=== PATIENT | female | born 1960 | race Hispanic/Latino ===

== ENCOUNTER 2018-10-11 11:34 | Emergency (ER) | payer MEDICARE ==
--- NOTE | 2018-10-11 12:52 | Emergency Department Report ---
ED Abdominal Pain HPI - General Chief Complaint: Tube Replacement Stated Complaint: GI BLEED/TUBE Time Seen by Provider: 10/11/18 12:17 Source: patient, EMS Mode of arrival: Stretcher Limitations: Physical Limitation - History of Present Illness Initial Comments: Mrs. Mao is a 58-year-old female with history of arthritis, GERD, MD, hypertension, anemia, depression, schizophrenia, peptic ulcer disease, bipolar disorder, G-tube. She has bleeding at the G-tube site. The G-tube was recently inserted at [facility]. At night she has bleeding at the site. She has irritation at the site. She denies abdominal pain. SHe denies fever. No other concerns. She has been a resident at [facility] for the past 10 years. She stated that previous nurse provided wound care for the G tube site. However this nurse is no longer is available at the facility. Primary physician listed as Dr. Saulo [place] alternative physician Dr. Raji Schmitz. Complaint: other (irritation at g tube site) -: Gradual, days(s) (4-5) Severity: mild Quality: other (irritation) Consistency: intermittent Worsens With: other (manipulation of G tube) Associated Symptoms: denies other symptoms - Related Data Home Medications Medication Instructions Recorded Confirmed Last Taken ALPRAZolam [Xanax TAB] 0.5 mg PO BID 03/31/15 03/31/15 1 Day Ago ~03/30/15 Bisacodyl [Dulcolax suppos] 10 mg [place] QDAY PRN 03/31/15 03/31/15 1 Day Ago ~03/30/15 Butalb/Acetaminophen/Caffeine 1 cap PO Q4H PRN 03/31/15 03/31/15 1 Day Ago [Fioricet 50-300-40 mg CAP] ~03/30/15 Cetirizine HCl [ZyrTEC 10mg cap] 10 mg PO DAILY 03/31/15 03/31/15 1 Day Ago ~03/30/15 Citalopram [Celexa] 30 mg PO QDAY 03/31/15 03/31/15 1 Day Ago ~03/30/[address] [Depakote Dr] 500 mg PO BID 03/31/15 03/31/15 1 Day Ago ~03/30/15 Fluticasone [Flonase] 2 spray NS QDAY 03/31/15 03/31/15 1 Day Ago ~03/30/15 Gabapentin [Neurontin] 100 mg PO Q8HR 03/31/15 03/31/15 1 Day Ago ~03/30/15 Haloperidol Lactate [Haldol] 1 mg IM Q6H PRN 03/31/15 03/31/15 1 Day Ago ~03/30/15 Haloperidol [Haldol] 5 mg PO QHS PRN 03/31/15 03/31/15 1 Day Ago ~03/30/15 Melatonin/Pyridoxine [Melatonin 5 1 each PO QHS 03/31/15 03/31/15 1 Day Ago mg Tablet] ~03/30/15 Ondansetron [Zofran TAB] 4 mg PO Q6H PRN 03/31/15 03/31/15 1 Day Ago ~03/30/15 Polyvinyl Alcohol [Artificial 15 ml OP TID 03/31/15 03/31/15 1 Day Ago Tears] ~03/30/15 Sennosides Tab [Senokot] 17.2 mg PO QHS 03/31/15 03/31/15 1 Day Ago ~03/30/15 levETIRAcetam [Keppra TAB] 1,500 mg PO BID 03/31/15 03/31/15 1 Day Ago ~03/30/15 Previous Rx's Medication Instructions Recorded Last Taken Type Pantoprazole [Protonix TAB] 40 mg PO QDAY #30 tablet 04/04/15 Unknown Rx Sucralfate [Carafate] 1 gm PO Q8H 30 Days tablet 04/04/15 Unknown Rx Polyethylene Glycol 3350 [Miralax 17 gm FEEDTUBE QDAY powd.pack 06/24/18 Unknown Rx 3350] Neomycn/Bacitrc/Polymyx/Pramox 1 applicatio TP BID 10 Days #1 10/11/18 Unknown Rx [Triple Antibiotic Plus Ointmnt] oint...g. Sulfamethoxazole/Trimethoprim 1 each PO BID 7 Days #14 tablet 10/11/18 Unknown Rx [Bactrim DS TAB] Allergies Allergy/AdvReac Type Severity Reaction Status Date / Time Penicillins Allergy Itching Verified 10/11/18 12:05 promethazine HCl Allergy Hives Verified 10/11/18 12:05 [From Phenergan] ED Review of Systems ROS: Stated complaint: GI BLEED/TUBE Other details as noted in HPI Constitutional: denies: malaise Gastrointestinal: denies: abdominal pain, nausea, vomiting Skin: rash ED Past Medical Hx - Past Medical History Previous Medical History?: Yes Hx Hypertension: Yes Hx Heart Attack/AMI: Yes Hx Congestive Heart Failure: No Hx Diabetes: No Hx GERD: Yes Hx Arthritis: Yes Hx Headaches / Migraines: No Hx Seizures: Yes Hx Psychiatric Treatment: Yes Hx Asthma: No Hx COPD: No Hx Dementia: No Hx HIV: No Additional medical history: anemia; depression; schizophrenia; peptic ulcer disease. Mental delay; bipolar; MDD; SANTANA; - Surgical History Past Surgical History?: Yes Additional Surgical History: leg surgery; Right hip replacement; GTube - Social History Smoking Status: Never Smoker Substance Use Type: None - Medications Home Medications: Home Medications Medication Instructions Recorded Confirmed Last Taken Type ALPRAZolam [Xanax TAB] 0.5 mg PO BID 03/31/15 03/31/15 1 Day Ago History ~03/30/15 Bisacodyl [Dulcolax suppos] 10 mg [place] QDAY PRN 03/31/15 03/31/15 1 Day Ago History ~03/30/15 Butalb/Acetaminophen/Caffeine 1 cap PO Q4H PRN 03/31/15 03/31/15 1 Day Ago History [Fioricet 50-300-40 mg CAP] ~03/30/15 Cetirizine HCl [ZyrTEC 10mg cap] 10 mg PO DAILY 03/31/15 03/31/15 1 Day Ago History ~03/30/15 Citalopram [Celexa] 30 mg PO QDAY 03/31/15 03/31/15 1 Day Ago History ~03/30/[address] [Depakote Dr] 500 mg PO BID 03/31/15 03/31/15 1 Day Ago History ~03/30/15 Fluticasone [Flonase] 2 spray NS QDAY 03/31/15 03/31/15 1 Day Ago History ~03/30/15 Gabapentin [Neurontin] 100 mg PO Q8HR 03/31/15 03/31/15 1 Day Ago History ~03/30/15 Haloperidol Lactate [Haldol] 1 mg IM Q6H PRN 03/31/15 03/31/15 1 Day Ago History ~03/30/15 Haloperidol [Haldol] 5 mg PO QHS PRN 03/31/15 03/31/15 1 Day Ago History ~03/30/15 Melatonin/Pyridoxine [Melatonin 5 1 each PO QHS 03/31/15 03/31/15 1 Day Ago History mg Tablet] ~03/30/15 Ondansetron [Zofran TAB] 4 mg PO Q6H PRN 03/31/15 03/31/15 1 Day Ago History ~03/30/15 Polyvinyl Alcohol [Artificial 15 ml OP TID 03/31/15 03/31/15 1 Day Ago History Tears] ~03/30/15 Sennosides Tab [Senokot] 17.2 mg PO QHS 03/31/15 03/31/15 1 Day Ago History ~03/30/15 levETIRAcetam [Keppra TAB] 1,500 mg PO BID 03/31/15 03/31/15 1 Day Ago History ~03/30/15 Pantoprazole [Protonix TAB] 40 mg PO QDAY #30 tablet 04/04/15 Unknown Rx Sucralfate [Carafate] 1 gm PO Q8H 30 Days tablet 04/04/15 Unknown Rx Polyethylene Glycol 3350 [Miralax 17 gm FEEDTUBE QDAY powd.pack 06/24/18 Unknown Rx 3350] Neomycn/Bacitrc/Polymyx/Pramox 1 applicatio TP BID 10 Days #1 10/11/18 Unknown Rx [Triple Antibiotic Plus Ointmnt] oint...g. Sulfamethoxazole/Trimethoprim 1 each PO BID 7 Days #14 tablet 10/11/18 Unknown Rx [Bactrim DS TAB] ED Physical Exam - General Limitations: Physical Limitation General appearance: alert, in no apparent distress - Head Head exam: Present: atraumatic, normocephalic - Eye Eye exam: Present: normal appearance. Absent: scleral icterus, nystagmus - ENT ENT exam: Present: mucous membranes moist - Neck Neck exam: Present: normal inspection, full ROM - Respiratory Respiratory exam: Absent: respiratory distress - GI/Abdominal GI/Abdominal exam: Present: soft, other (red irritated skin surrounding G tube ) - Neurological Exam Neurological exam: Present: alert, oriented X3 - Psychiatric Psychiatric exam: Present: normal affect, normal mood ED Course Vital Signs 10/11/18 10/11/18 11:58 12:05 Temperature 97.8 F Pulse Rate 65 Respiratory 16 16 Rate Blood Pressure 115/65 O2 Sat by Pulse 100 100 Oximetry ED Medical Decision Making - Medical Decision Making G tube site irritation, possible cellulits, will prescribed antibiotic ointment and bactrim Dc'd to SNF after wound care provided by nurse in our ED Critical care attestation.: If time is entered above; I have spent that time in minutes in the direct care of this critically ill patient, excluding procedure time. ED Disposition Clinical Impression: G-tube site cellulitis Disposition: DC/TX-70 ANOTHER TYPE HLTHCARE Is pt being admited?: No Does the pt Need Aspirin: No Condition: Stable Additional Instructions: Ms. Mao will need topical and oral antibiotics. She will especially need regular wound care at the site. Prescriptions: Sulfamethoxazole/Trimethoprim [Bactrim DS TAB] 1 each PO BID 7 Days #14 tablet Neomycn/Bacitrc/Polymyx/Pramox [Triple Antibiotic Plus Ointmnt] 1 applicatio TP BID 10 Days #1 oint...g.
[2018-10-11] MEDS ORDERED: BACTRIM DS PO ONE (12:53)
[2018-10-11] MEDS ORDERED: TRIPLE ANTIBIOTIC TP ONE (12:53)
[2018-10-11 13:38] VITALS: BP 135/71
== END 2018-10-11 15:00 | disposition other institution (70) ==
LOC: ED 11:34
DX: K94.23 Gastrostomy malfunction (principal); L03.311 Cellulitis of abdominal wall; I10 Essential (primary) hypertension; I25.2 Old myocardial infarction; K21.9 Gastro-esophageal reflux disease without esophagitis; M19.90 Unspecified osteoarthritis, unspecified site; Z86.2 Personal history of diseases of the blood and blood-forming organs and certain disorders involving the immune mechanism; F31.9 Bipolar disorder, unspecified; F20.9 Schizophrenia, unspecified; Z79.899 Other long term (current) drug therapy; Z88.1 Allergy status to other antibiotic agents; Z88.0 Allergy status to penicillin; Z96.641 Presence of right artificial hip joint
CPT/HCPCS: A6250

== ENCOUNTER 2019-03-06 11:01 | Emergency (ER) | payer MEDICARE ==
--- NOTE | 2019-03-06 11:43 | Emergency Department Report ---
HPI - General Chief Complaint: Psych Time Seen by Provider: 03/06/19 11:33 - HPI HPI: 58-year-old female presents to the emergency department via EMS from her [facility] with the complaint of depression. She does have a history of bipolar disorder and generalized anxiety. She says that she is feeling depressed because it is around the holidays and her mother, father, and sister have previously . She has been living at [facility] for the past 10 years but the patient actually says that she enjoys living at that facility and the staff "likes me and I like them." However she does say that she has some arguments with her roommate regarding using the heating versus air-conditioning. She also says that they are shortstaffed there. She denies any suicidal or homicidal ideations, or any hallucinations. She also has a past medical history of hypertension, acid reflux. She is non-ambulatory. She says that she has a psychiatrist in [place] but it is far away and she cannot even currently remember their name. ED Past Medical Hx - Past Medical History Previous Medical History?: Yes Hx Hypertension: Yes Hx Heart Attack/AMI: Yes Hx Congestive Heart Failure: No Hx Diabetes: No Hx Deep Vein Thrombosis: Yes Hx GERD: Yes Hx Arthritis: Yes Hx Headaches / Migraines: No Hx Seizures: Yes Hx Psychiatric Treatment: Yes (Anxiety, Schizophrenia, Bipolar, MDD) Hx Asthma: No Hx COPD: No Hx Dementia: No Hx HIV: No Additional medical history: anemia; depression; schizophrenia; peptic ulcer disease. Mental delay; bipolar; MDD; SANTANA; - Surgical History Past Surgical History?: Yes Additional Surgical History: leg surgery; Right hip replacement; GTube - Social History Smoking Status: Never Smoker Substance Use Type: None - Medications Home Medications: Home Medications Medication Instructions Recorded Confirmed Last Taken Type ALPRAZolam [Xanax TAB] 0.5 mg PO BID 03/31/15 03/31/15 1 Day Ago History ~03/30/15 Bisacodyl [Dulcolax suppos] 10 mg [place] QDAY PRN 03/31/15 03/31/15 1 Day Ago Hist ory ~03/30/15 Butalb/Acetaminophen/Caffeine 1 cap PO Q4H PRN 03/31/15 03/31/15 1 Day Ago His tory [Fioricet 50-300-40 mg CAP] ~03/30/15 Cetirizine HCl [ZyrTEC 10mg cap] 10 mg PO DAILY 03/31/15 03/31/15 1 Day Ago History ~03/30/15 Citalopram [Celexa] 30 mg PO QDAY 03/31/15 03/31/15 1 Day Ago History ~03/30/[address] [Depakote Dr] 500 mg PO BID 03/31/15 03/31/15 1 Day Ago History ~03/30/15 Fluticasone [Flonase] 2 spray NS QDAY 03/31/15 03/31/15 1 Day Ago History ~03/30/15 Gabapentin 100 mg PO Q8HR 03/31/15 03/31/15 1 Day Ago History ~03/30/15 Haloperidol Lactate [Haldol] 1 mg IM Q6H PRN 03/31/15 03/31/15 1 Day Ago History ~03/30/15 Haloperidol [Haldol] 5 mg PO QHS PRN 03/31/15 03/31/15 1 Day Ago History ~03/30/15 Melatonin/Pyridoxine [Melatonin 5 1 each PO QHS 03/31/15 03/31/15 1 Day Ago History mg Tablet] ~03/30/15 Ondansetron [Zofran TAB] 4 mg PO Q6H PRN 03/31/15 03/31/15 1 Day Ago History ~03/30/15 Polyvinyl Alcohol [Artificial 15 ml OP TID 03/31/15 03/31/15 1 Day Ago History Tears] ~03/30/15 Sennosides Tab [Senokot] 17.2 mg PO QHS 03/31/15 03/31/15 1 Day Ago History ~03/30/15 levETIRAcetam [Keppra TAB] 1,500 mg PO BID 03/31/15 03/31/15 1 Day Ago History ~03/30/15 Pantoprazole [Protonix TAB] 40 mg PO QDAY #30 tablet 04/04/15 Unknown Rx Sucralfate [Carafate] 1 gm PO Q8H 30 Days tablet 04/04/15 Unknown Rx Polyethylene Glycol 3350 [Miralax 17 gm FEEDTUBE QDAY powd.pack 06/24/18 Unknown Rx 3350] Neomycn/Bacitrc/Polymyx/Pramox 1 applicatio TP BID 10 Days #1 10/11/18 Unknown Rx [Triple Antibiotic Plus Ointmnt] oint...g. Sulfamethoxazole/Trimethoprim 1 each PO BID 7 Days #14 tablet 10/11/18 Unknown Rx [Bactrim DS TAB] ED Review of Systems ROS: Stated complaint: DEPRESSION Other details as noted in HPI Comment: All other systems reviewed and negative Constitutional: denies: chills, fever Respiratory: denies: shortness of breath Cardiovascular: denies: chest pain Gastrointestinal: denies: abdominal pain Neurological: denies: headache, weakness Psychiatric: depression. denies: auditory hallucinations, visual hallucinations, homicidal thoughts, suicidal thoughts Physical Exam - Physical Exam Physical Exam: GENERAL: The patient is well-developed well-nourished. HENT: Normocephalic. Atraumatic. Patient has moist mucous membranes. EYES: Extraocular motions are intact. NECK: Supple. Trachea is midline. CHEST/LUNGS: Clear to auscultation. There is no respiratory distress noted. HEART/CARDIOVASCULAR: Regular. There is no tachycardia. There is no murmur. ABDOMEN: Abdomen is soft, nontender. Patient has normal bowel sounds. There is no abdominal distention. SKIN: Skin is warm and dry. NEURO: The patient is awake, alert, and oriented. The patient is cooperative. The patient has no focal neurologic deficits. Normal speech. MUSCULOSKELETAL: There are chronic foot contractures. There is no limitation range of motion. There is no evidence of acute injury. PSYCH: Patient is tearful. ED Medical Decision Making - Lab Data Result diagrams: 03/06/19 12:08 03/06/19 12:08 - Medical Decision Making This patient presents to the emergency department with complaint of depression. She appears to be sad that she is alone during the holidays, and she also has some disagreements with her [facility] roommate. The patient is slightly emotionally labile and is often seen being tearful. She denies any suicidal or homicidal ideations or any hallucinations. Labs have been mostly unremarkable. The patient was seen by the psychiatric assessment team and the patient has been accepted to go to the [facility] floor. - Differential Diagnosis depression, bipolar disorder, substance abuse Critical Care Time: No Critical care attestation.: If time is entered above; I have spent that time in minutes in the direct care of this critically ill patient, excluding procedure time. ED Disposition Clinical Impression: Bipolar 2 disorder Depression Qualifiers: Depression Type: unspecified Qualified Code(s): F32.9 - Major depressive disorder, single episode, unspecified Disposition: DC-01 TO HOME OR SELFCARE Is pt being admited?: No Condition: Stable Instructions: Depression (ED), Suicide Prevention for Adults (ED) Time of Disposition: 14:25
[2019-03-06 12:21] LABS: Basophils % (Auto) 0.4 % (0.0-1.8); Eosinophils # (Auto) 0.4 K/mm3 (0.0-0.4); Eosinophils % (Auto) 6.4 % (0.0-4.3); Hematocrit 37.6 % (30.3-42.9); Hemoglobin 12.6 gm/dl (10.1-14.3); Lymphocytes # (Auto) 1.9 K/mm3 (1.2-5.4); Lymphocytes % (Auto) 33.6 % (13.4-35.0); Mean Corpuscular HGB Conc 34 % (30-34); Mean Corpuscular Volume 89 fl (79-97); Monocytes # (Auto) 0.3 K/mm3 (0.0-0.8); Monocytes % (Auto) 5.9 % (0.0-7.3); Platelet Count 129 K/mm3 (140-440); Red Blood Count 4.24 M/mm3 (3.65-5.03); Red Cell Distribution Width 13.9 % (13.2-15.2)
[2019-03-06 12:41] LABS: BUN/Creatinine Ratio 33; Blood Urea Nitrogen 10 mg/dL (7-17); Calcium 10.2 mg/dL (8.4-10.2); Hemolysis Index 5
[2019-03-06 13:19] LABS: Amorphous Crystals,Urine Few; Bacteria,Urine 1+ /HPF (Negative); Bilirubin,Urine NEG (Negative); Blood,Urine NEG (Negative); Color,Urine Yellow (Yellow); Mucus,Urine FEW /HPF; Protein,Urine <15 mg/dL mg/dL (Negative); Urobilinogen,Urine < 2.0 mg/dL (<2.0)
[2019-03-06 13:27] LABS: Amphetamine Screen,Urine PRESUMPTIVE NEGATIVE; Cannabinoid Screen,Urine PRESUMPTIVE NEGATIVE; Cocaine Screen,Urine PRESUMPTIVE NEGATIVE; Methadone Screen,Urine PRESUMPTIVE NEGATIVE; Opiate Screen,Urine PRESUMPTIVE NEGATIVE
[2019-03-06 13:40] LABS: Benzodiazepines Screen,Urine PRESUMPTIVE POSITIVE
[2019-03-06] MEDS ORDERED: CITALOPRAM 20 MG TAB PO ONE (16:13)
[2019-03-06] MEDS ORDERED: ARIPiprazole 10 MG TAB PO ONE (16:15)
[2019-03-06] MEDS ORDERED: QUEtiapine 25 MG TAB PO ONE (16:21)
[2019-03-06 16:50] VITALS: BP 115/87
[2019-03-06] MEDS ORDERED: VENLAFAXINE 37.5 MG TAB PO ONE (17:00)
== END 2019-03-06 16:50 | disposition home or self-care (01) ==
LOC: ED 11:01
DX: F31.9 Bipolar disorder, unspecified (principal); I10 Essential (primary) hypertension; I25.2 Old myocardial infarction; K21.9 Gastro-esophageal reflux disease without esophagitis; M19.90 Unspecified osteoarthritis, unspecified site; G43.909 Migraine, unspecified, not intractable, without status migrainosus; F20.9 Schizophrenia, unspecified
CPT/HCPCS: 36415; 80048; 80307; 80320; 81001; 85025; G0480

== ENCOUNTER 2019-03-06 14:28 | Inpatient (IN) | payer MEDICARE ==
[2019-03-06] MEDS ORDERED: HALOPERIDOL 5 MG TAB PO PRN (15:39)
[2019-03-06] MEDS ORDERED: NON-FORMULARY EACH (Butalb/Acetaminophen/Caffeine [Fioricet 50-300-40 Mg Cap] 1 CAP) PO PRN (15:39)
[2019-03-06] MEDS ORDERED: BUTALB/ACETAMINOPHEN/CAFFEINE TAB PO PRN (17:34)
[2019-03-06] MEDS ORDERED: POLYVINYL ALCOHOL OP SCH (20:00)
[2019-03-06] MEDS: SENNOSIDES 8.6 MG TAB PO SCH (21:51)
[2019-03-06] MEDS: SULFAMETHOXAZOLE/TRIMETHOPRIM 800/160MG DS TAB PO SCH (21:51)
[2019-03-06] MEDS: GABAPENTIN 100 MG CAP PO SCH (21:52)
[2019-03-06] MEDS: clonazePAM 0.5 MG TAB PO SCH (21:52)
[2019-03-06] MEDS: levETIRAcetam 500 MG TAB PO SCH (21:52)
[2019-03-06] MEDS: HYPROMELLOSE 0.5% OPHTH SOLN 15 ML OU SCH (21:59)
[2019-03-06] MEDS ORDERED: DIVALPROEX DR 500 MG TAB PO SCH (22:00)
[2019-03-06] MEDS ORDERED: DIVALPROEX DR 250 MG TAB PO SCH (22:00)
[2019-03-06] MEDS ORDERED: LEVETIRACETAM 1500 MG PO SCH (22:00)
[2019-03-06 23:16] LABS: Chol/HDL Ratio 3.48 %
[2019-03-07] MEDS: GABAPENTIN 100 MG CAP PO SCH ×3 (05:35→22:31)
[2019-03-07] MEDS: SUCRALFATE 1 GM TAB PO SCH ×4 (06:03→17:07)
[2019-03-07] MEDS: HYPROMELLOSE 0.5% OPHTH SOLN 15 ML OU SCH ×3 (08:30→20:12)
--- NOTE | 2019-03-07 09:30 | History and Physical Report ---
GP History & Physical - History of Present Illness Date of admission: 03/06/19 Date of Examination: 03/06/19 Reason for Admission: Severe anxiety/depression Chief Complaint: I feel depressed. History of Present Illness: The patient is a 58 year old single disabled female. The patient resides at a half-way. The patient was transferred from [facility] with h/o depression and being suicidal. Per Nursing report: Received patient awake, alert and oriented x3. PM meds given via peg tube. Patient denies SI/HI but did state she felt depressed. Patient is total care, bed bound and 1-2 assist. Incontinent of bowel and bladder. Large hard BM observed. Patient complain of nausea and vomiting. Coffee brown emesis observed. Patient stated she felt like she was coming down with a cold. Clear tenacious phlegm and a runny nose observed. Sacral area and back of legs noted with excoriation and redness. In my interview with the patient, she states that she was depressed, but is now just sick. The patient has been diagnosed as bipolar, and had been admitted many times psychiatric hospitals.(over 10 times) She has tried to kill her self once by placing bags on her head. The patient does have a psychiatrist in [place] but cant remember his/her name. Two of her sisters have been diagnosed as bipolar also. The patient does not drink, smoke or do drugs. She presently has no thoughts of suicide, does not want to harm anyone, or feels as if someone wants to harm her. The patients highest educational level completed was the 12th grade. (special education) PAST PSYCHIATRIC HISTORY: Diagnoses: BIPOLAR Suicide attempts or Self-harm behavior 1 SUICIDE ATTEMPT IN THE PAST. PATIENT PUT PLASTIC BAGS OVER HER HEAD. Prior psychiatric hospitalizations Patient has been hospitalized over 10 times. Substance Abuse history:NONE PAST MEDICAL HISTORY: Family Psychiatric History 2 sisters have been diagnosed as bipolar None reported or documented SOCIAL HISTORY Marital Status: Single Living Arrangements: Half-Way Employment Status: Unemployed Access to guns/weapons: NONE Education: 12th Grade History of Abuse: NONE Legal History: NONE REVIEW OF SYSTEMS Constitutional: Negative for weight loss ENT: Negative for stridor Respiratory: Negative for cough or hemoptysis All other systems reviewed and are negative Legal Status: Voluntary Patient Problems: Current Active Problems Bipolar 1 disorder, depressed, severe (Acute) Reaction to Hospitalization: Accepting Medications and Allergies Allergies Allergy/AdvReac Type Severity Reaction Status Date / Time Penicillins Allergy Itching Verified 10/11/18 12:05 promethazine HCl Allergy Hives Verified 10/11/18 12:05 [From Phenergan] Home Medications Medication Instructions Recorded Confirmed Last Taken Type ALPRAZolam [Xanax TAB] 0.5 mg PO BID 03/31/15 03/06/19 1 Day Ago History ~03/30/15 Bisacodyl [Dulcolax suppos] 10 mg [place] QDAY PRN 03/31/15 03/06/19 1 Day Ago History ~03/30/15 Butalb/Acetaminophen/Caffeine 1 cap PO Q4H PRN 03/31/15 03/06/19 1 Day Ago History [Fioricet 50-300-40 mg CAP] ~03/30/15 Cetirizine HCl [ZyrTEC 10mg cap] 10 mg PO DAILY 03/31/15 03/06/19 1 Day Ago History ~03/30/15 Citalopram [Celexa] 30 mg PO QDAY 03/31/15 03/06/19 1 Day Ago History ~03/30/[address] [Depakote Dr] 500 mg PO BID 03/31/15 03/06/19 1 Day Ago History ~03/30/15 Fluticasone [Flonase] 2 spray NS QDAY 03/31/15 03/06/19 1 Day Ago History ~03/30/15 Gabapentin 100 mg PO Q8HR 03/31/15 03/06/19 1 Day Ago History ~03/30/15 Haloperidol Lactate [Haldol] 1 mg IM Q6H PRN 03/31/15 03/06/19 1 Day Ago History ~03/30/15 Haloperidol [Haldol] 5 mg PO QHS PRN 03/31/15 03/06/19 1 Day Ago History ~03/30/15 Melatonin/Pyridoxine [Melatonin 5 1 each PO QHS 03/31/15 03/06/19 1 Day Ago History mg Tablet] ~03/30/15 Ondansetron [Zofran TAB] 4 mg PO Q6H PRN 03/31/15 03/06/19 1 Day Ago History ~03/30/15 Polyvinyl Alcohol [Artificial 15 ml OP TID 03/31/15 03/06/19 1 Day Ago History Tears] ~03/30/15 Sennosides Tab [Senokot] 17.2 mg PO QHS 03/31/15 03/06/19 1 Day Ago History ~03/30/15 levETIRAcetam [Keppra TAB] 1,500 mg PO BID 03/31/15 03/06/19 1 Day Ago History ~03/30/15 Pantoprazole [Protonix TAB] 40 mg PO QDAY #30 tablet 04/04/15 03/06/19 Unknown Rx Sucralfate [Carafate] 1 gm PO Q8H 30 Days tablet 04/04/15 03/06/19 Unknown Rx Polyethylene Glycol 3350 [Miralax 17 gm FEEDTUBE QDAY powd.pack 06/24/18 03/06/19 03/05/19 Rx 3350] Neomycn/Bacitrc/Polymyx/Pramox 1 applicatio TP BID 10 Days #1 10/11/18 03/06/19 Unknown Rx [Triple Antibiotic Plus Ointmnt] oint...g. Sulfamethoxazole/Trimethoprim 1 each PO BID 7 Days #14 tablet 10/11/18 03/06/19 Unknown Rx [Bactrim DS TAB] Active Meds: Active Medications Acetaminophen/Butalbital/Caffeine (Fioricet) 1 tab PO Q4H PRN PRN Reason: Headache Artificial Tears (Isopto Tears 0.5%) 2 drops OU TID [facility] Last Admin: 03/06/19 21:59 Dose: 2 drops Documented by: Bisacodyl (Dulcolax) 10 mg [place] QDAY PRN PRN Reason: Constipation Citalopram Hydrobromide (Celexa) 30 mg PO DAILY [facility] Clonazepam (Klonopin) 0.5 mg PO BID [facility] Last Admin: 03/06/19 21:52 Dose: 0.5 mg Documented by: Divalproex Sodium (Depakote Dr) 500 mg PO BID [facility] Last Admin: 03/06/19 21:51 Dose: 500 mg Documented by: Fluticasone Propionate (Flonase) 100 mcg NS QDAY [facility] Gabapentin (Gabapentin) 100 mg PO Q8HR [facility] Last Admin: 03/07/19 05:35 Dose: 100 mg Documented by: Haloperidol (Haldol) 5 mg PO QHS PRN PRN Reason: Agitation Haloperidol Lactate (Haldol) 1 mg IM Q6H PRN PRN Reason: Agitation Levetiracetam (Keppra) 1,500 mg PO BID [facility] Last Admin: 03/06/19 21:52 Dose: 1,500 mg Documented by: Loratadine (Claritin) 10 mg PO DAILY [facility] Pantoprazole Sodium (Protonix) 40 mg PO QDAY [facility] Polyethylene Glycol (Miralax 3350) 17 gm FEEDTUBE QDAY [facility] Senna (Senokot) 17.2 mg PO QHS [facility] Last Admin: 03/06/19 21:51 Dose: 17.2 mg Documented by: Sucralfate (Carafate) 1 gm PO Q8H [facility] Last Admin: 03/07/19 06:03 Dose: Not Given Documented by: Trimethoprim/Sulfamethoxazole (Bactrim Ds) 1 each PO BID [facility] Stop: 03/12/19 22:01 Last Admin: 03/06/19 21:51 Dose: 1 each Documented by: Results - Results Labs/Vitals: Laboratory Last Values Hemoglobin A1c 5.2 % (4-6) 03/06/19 12:08 Triglycerides 73 mg/dL (2-149) 03/06/19 21:18 Cholesterol 157 mg/dL (50-199) 03/06/19 21:18 LDL Cholesterol Direct 102 mg/dL (50-130) 03/06/19 21:18 HDL Cholesterol 45 mg/dL (40-59) 03/06/19 21:18 Cholesterol/HDL Ratio 3.48 % 03/06/19 21:18 Last Vital Signs Temp 98.3 F 03/06/19 22:00 Pulse 92 H 03/06/19 22:00 Resp 18 03/06/19 22:00 BP 147/83 03/06/19 22:00 Pulse Ox 95 03/06/19 22:00 Physical Examination - Constitutional Vitals: Vital Signs Temp Pulse Resp BP Pulse Ox 98.3 F 92 H 18 147/83 95 03/06/19 22:00 03/06/19 22:00 03/06/19 22:00 03/06/19 22:00 03/06/19 22:00 Temperature -Last 24 Hours Temperature 98.3 F General appearance: Present: no acute distress, well-nourished - EENT Eyes: Present: PERRL, EOM intact ENT: hearing intact, clear oral mucosa - Neck Neck: Present: supple, normal ROM - Respiratory Respiratory effort: normal Mental Status Exam - Vital signs Last Vital Signs Temp 98.3 F 03/06/19 22:00 Pulse 92 H 03/06/19 22:00 Resp 18 03/06/19 22:00 BP 147/83 03/06/19 22:00 Pulse Ox 95 03/06/19 22:00 - Exam Orientation: time, place, person Affect: depressed Mood: congruent with affect Thought content: other (No SI/HI) Thought Process: Intact Perceptions: none Speech: normal rate and pattern Concentration: focused Motor activity: lethargic Level of consciousness: alert Memory: Intact Interaction: cooperative Assessment and Plan - Psychiatric problem (1) Bipolar 1 disorder, depressed, severe Current Visit: Yes Status: Acute plan to address problem: Patient will be admitted for inpatient psychiatric evaluation, medication adjustment and close monitoring The patient's behavior, mood, sleep and appetite will be closely monitored. Patient will be enrolled in individual and group therapeutic sessions and encouraged to attend. Patient will be provided with a safe and structured environment. Patient's physical health needs will be addressed by the Hospitalist. Hospitalist Consulted Labs including CBC, CMP, Lipid profile and Hemoglobin A1C ordered Social Assessment will be completed and the [employer] Consultant will work with patient and family to ensure a suitable and safe disposition Medication adjustment will be made as clinically indicated The patient agreed on the treatment plan, understood the risk, benefit, alternative treatment, potential consequence of no treatment, and gave informed consent. Physician Certification - Certification Statement Physician Certification Statement: This is an acknowledgement statement that JOSSIE SNOW is a 58 year old F who requires inpatient psychiatric admission for treatment which could reasonably be expected to improve the patient's condition for Depression Estimated period of time patient will need to remain in the hospital: 7 days Plan for post-hospital care: out-patient care
--- NOTE | 2019-03-07 09:46 | Progress Note ---
Subjective Date of service: 03/07/19 Subjective Comment: received patient awake, alert and oriented x3. PM meds given via peg tube. Patient denies SI/HI but did state she felt depressed In my interview with the patient this morning, the patient stated she was in a good mood, and eating well. The patient stated that she hadn't been sleeping well, was depressed but is now just sick and wants to go back to where she was. The patient has no paranoia, no thoughts of suicide, and does not hear voices. Medications and Allergies Allergies Allergy/AdvReac Type Severity Reaction Status Date / Time Penicillins Allergy Itching Verified 10/11/18 12:05 promethazine HCl Allergy Hives Verified 10/11/18 12:05 [From Phenergan] Home Medications Medication Instructions Recorded Confirmed Last Taken Type ALPRAZolam [Xanax TAB] 0.5 mg PO BID 03/31/15 03/06/19 1 Day Ago History ~03/30/15 Bisacodyl [Dulcolax suppos] 10 mg [place] QDAY PRN 03/31/15 03/06/19 1 Day Ago History ~03/30/15 Butalb/Acetaminophen/Caffeine 1 cap PO Q4H PRN 03/31/15 03/06/19 1 Day Ago History [Fioricet 50-300-40 mg CAP] ~03/30/15 Cetirizine HCl [ZyrTEC 10mg cap] 10 mg PO DAILY 03/31/15 03/06/19 1 Day Ago History ~03/30/15 Citalopram [Celexa] 30 mg PO QDAY 03/31/15 03/06/19 1 Day Ago History ~03/30/[address] [Depakote Dr] 500 mg PO BID 03/31/15 03/06/19 1 Day Ago History ~03/30/15 Fluticasone [Flonase] 2 spray [place] QDAY 03/31/15 03/06/19 1 Day Ago History ~03/30/15 Gabapentin 100 mg PO Q8HR 03/31/15 03/06/19 1 Day Ago History ~03/30/15 Haloperidol Lactate [Haldol] 1 mg IM Q6H PRN 03/31/15 03/06/19 1 Day Ago History ~03/30/15 Haloperidol [Haldol] 5 mg PO QHS PRN 03/31/15 03/06/19 1 Day Ago History ~03/30/15 Melatonin/Pyridoxine [Melatonin 5 1 each PO QHS 03/31/15 03/06/19 1 Day Ago History mg Tablet] ~03/30/15 Ondansetron [Zofran TAB] 4 mg PO Q6H PRN 03/31/15 03/06/19 1 Day Ago History ~03/30/15 Polyvinyl Alcohol [Artificial 15 ml OP TID 03/31/15 03/06/19 1 Day Ago History Tears] ~03/30/15 Sennosides Tab [Senokot] 17.2 mg PO QHS 03/31/15 03/06/19 1 Day Ago History ~03/30/15 levETIRAcetam [Keppra TAB] 1,500 mg PO BID 03/31/15 03/06/19 1 Day Ago History ~03/30/15 Pantoprazole [Protonix TAB] 40 mg PO QDAY #30 tablet 04/04/15 03/06/19 Unknown Rx Sucralfate [Carafate] 1 gm PO Q8H 30 Days tablet 04/04/15 03/06/19 Unknown Rx Polyethylene Glycol 3350 [Miralax 17 gm FEEDTUBE QDAY [facility].pack 06/24/18 03/06/19 03/05/19 Rx 3350] Neomycn/Bacitrc/Polymyx/Pramox 1 applicatio TP BID 10 Days #1 10/11/18 03/06/19 Unknown Rx [Triple Antibiotic Plus Ointmnt] oint...g. Sulfamethoxazole/Trimethoprim 1 each PO BID 7 Days #14 tablet 10/11/18 03/06/19 Unknown Rx [Bactrim DS TAB] Active Meds: Active Medications Acetaminophen/Butalbital/Caffeine (Fioricet) 1 tab PO Q4H PRN PRN Reason: Headache Artificial Tears (Isopto Tears 0.5%) 2 drops OU TID [facility] Last Admin: 03/06/19 21:59 Dose: 2 drops Documented by: Bisacodyl (Dulcolax) 10 mg [place] QDAY PRN PRN Reason: Constipation Citalopram Hydrobromide (Celexa) 30 mg PO DAILY [facility] Clonazepam (Klonopin) 0.5 mg PO BID [facility] Last Admin: 03/06/19 21:52 Dose: 0.5 mg Documented by: Divalproex Sodium (Depakote Dr) 500 mg PO BID [facility] Last Admin: 03/06/19 21:51 Dose: 500 mg Documented by: Fluticasone Propionate (Flonase) 100 mcg NS QDAY [facility] Gabapentin (Gabapentin) 100 mg PO Q8HR [facility] Last Admin: 03/07/19 05:35 Dose: 100 mg Documented by: Haloperidol (Haldol) 5 mg PO QHS PRN PRN Reason: Agitation Haloperidol Lactate (Haldol) 1 mg IM Q6H PRN PRN Reason: Agitation Levetiracetam (Keppra) 1,500 mg PO BID [facility] Last Admin: 03/06/19 21:52 Dose: 1,500 mg Documented by: Loratadine (Claritin) 10 mg PO DAILY [facility] Pantoprazole Sodium (Protonix) 40 mg PO QDAY [facility] Polyethylene Glycol (Miralax 3350) 17 gm FEEDTUBE QDAY [facility] Senna (Senokot) 17.2 mg PO QHS [facility] Last Admin: 03/06/19 21:51 Dose: 17.2 mg Documented by: Sucralfate (Carafate) 1 gm PO Q8H [facility] Last Admin: 03/07/19 06:03 Dose: Not Given Documented by: Trimethoprim/Sulfamethoxazole (Bactrim Ds) 1 each PO BID [facility] Stop: 03/12/19 22:01 Last Admin: 03/06/19 21:51 Dose: 1 each Documented by: Results - Results Labs/Vitals: Laboratory Last Values Hemoglobin A1c 5.2 % (4-6) 03/06/19 12:08 Triglycerides 73 mg/dL (2-149) 03/06/19 21:18 Cholesterol 157 mg/dL (50-199) 03/06/19 21:18 LDL Cholesterol Direct 102 mg/dL (50-130) 03/06/19 21:18 HDL Cholesterol 45 mg/dL (40-59) 03/06/19 21:18 Cholesterol/HDL Ratio 3.48 % 03/06/19 21:18 Last Vital Signs Temp 98.3 F 03/06/19 22:00 Pulse 92 H 03/06/19 22:00 Resp 18 03/06/19 22:00 BP 147/83 03/06/19 22:00 Pulse Ox 95 03/06/19 22:00
[2019-03-07] MEDS ORDERED: CITALOPRAM 20 MG TAB PO SCH (10:00)
[2019-03-07] MEDS ORDERED: NON-FORMULARY EACH (Cetirizine Hcl [Zyrtec 10mg Cap] 10 MG) PO SCH (10:00)
[2019-03-07] MEDS ORDERED: PANTOPRAZOLE 40 MG TAB PO SCH (10:00)
--- NOTE | 2019-03-07 10:34 | Consultation ---
History of Present Illness - Reason for Consult Consult date: 03/07/19 medical management Requesting physician: [facility] - History of Present Illness 58-year-old female patient long-term resident with significant past medical history of bipolar disorder, depression and generalized anxiety Was admitted through emergency room to inpatient psych/[facility] psych unit for further evaluation and management. Hospitalist service was consulted for medical management as patient has multiple medical issues At the time of my evaluation patient complains of mild nausea, denies chest pain shortness of breath Patient has PEG tube, however tolerates soft diet by mouth Patient denies chest pain or shortness of breath Denies headache dizziness weakness or numbness Past History Past Medical History: GERD, hypertension, seizures, other (Bipolar disorder, depression, chronic constipation, history of paraplegia) Past Surgical History: total hip replacement (Right hip replacement), Other (PEG tube ) Social history: full code, other (detention resident) Family history: no significant family history Medications and Allergies Allergies Allergy/AdvReac Type Severity Reaction Status Date / Time Penicillins Allergy Itching Verified 10/11/18 12:05 promethazine HCl Allergy Hives Verified 10/11/18 12:05 [From Phenergan] Home Medications Medication Instructions Recorded Confirmed Last Taken Type ALPRAZolam [Xanax TAB] 0.5 mg PO BID 03/31/15 03/06/19 1 Day Ago History ~03/30/15 Bisacodyl [Dulcolax suppos] 10 mg [place] QDAY PRN 03/31/15 03/06/19 1 Day Ago History ~03/30/15 Butalb/Acetaminophen/Caffeine 1 cap PO Q4H PRN 03/31/15 03/06/19 1 Day Ago History [Fioricet 50-300-40 mg CAP] ~03/30/15 Cetirizine HCl [ZyrTEC 10mg cap] 10 mg PO DAILY 03/31/15 03/06/19 1 Day Ago History ~03/30/15 Citalopram [Celexa] 30 mg PO QDAY 03/31/15 03/06/19 1 Day Ago History ~03/30/[address] [Depakote Dr] 500 mg PO BID 03/31/15 03/06/19 1 Day Ago History ~03/30/15 Fluticasone [Flonase] 2 spray NS QDAY 03/31/15 03/06/19 1 Day Ago History ~03/30/15 Gabapentin 100 mg PO Q8HR 03/31/15 03/06/19 1 Day Ago History ~03/30/15 Haloperidol Lactate [Haldol] 1 mg IM Q6H PRN 03/31/15 03/06/19 1 Day Ago History ~03/30/15 Haloperidol [Haldol] 5 mg PO QHS PRN 03/31/15 03/06/19 1 Day Ago History ~03/30/15 Melatonin/Pyridoxine [Melatonin 5 1 each PO QHS 03/31/15 03/06/19 1 Day Ago History mg Tablet] ~03/30/15 Ondansetron [Zofran TAB] 4 mg PO Q6H PRN 03/31/15 03/06/19 1 Day Ago History ~03/30/15 Polyvinyl Alcohol [Artificial 15 ml OP TID 03/31/15 03/06/19 1 Day Ago History Tears] ~03/30/15 Sennosides Tab [Senokot] 17.2 mg PO QHS 03/31/15 03/06/19 1 Day Ago History ~03/30/15 levETIRAcetam [Keppra TAB] 1,500 mg PO BID 03/31/15 03/06/19 1 Day Ago History ~03/30/15 Pantoprazole [Protonix TAB] 40 mg PO QDAY #30 tablet 04/04/15 03/06/19 Unknown Rx Sucralfate [Carafate] 1 gm PO Q8H 30 Days tablet 04/04/15 03/06/19 Unknown Rx Polyethylene Glycol 3350 [Miralax 17 gm FEEDTUBE QDAY [facility].pack 06/24/18 03/06/19 03/05/19 Rx 3350] Neomycn/Bacitrc/Polymyx/Pramox 1 applicatio TP BID 10 Days #1 10/11/18 03/06/19 Unknown Rx [Triple Antibiotic Plus Ointmnt] oint...g. Sulfamethoxazole/Trimethoprim 1 each PO BID 7 Days #14 tablet 10/11/18 03/06/19 Unknown Rx [Bactrim DS TAB] Active Meds: Active Medications Acetaminophen/Butalbital/Caffeine (Fioricet) 1 tab PO Q4H PRN PRN Reason: Headache Artificial Tears (Isopto Tears 0.5%) 2 drops OU TID [facility] Last Admin: 03/06/19 21:59 Dose: 2 drops Documented by: Bisacodyl (Dulcolax) 10 mg [place] QDAY PRN PRN Reason: Constipation Citalopram Hydrobromide (Celexa) 30 mg PO DAILY [facility] Clonazepam (Klonopin) 0.5 mg PO BID [facility] Last Admin: 03/06/19 21:52 Dose: 0.5 mg Documented by: Divalproex Sodium (Depakote Sprinkle) 500 mg FEEDTUBE BID [facility] Fluticasone Propionate (Flonase) 100 mcg NS QDAY [facility] Gabapentin (Gabapentin) 100 mg PO Q8HR [facility] Last Admin: 03/07/19 05:35 Dose: 100 mg Documented by: Haloperidol (Haldol) 5 mg PO QHS PRN PRN Reason: Agitation Haloperidol Lactate (Haldol) 1 mg IM Q6H PRN PRN Reason: Agitation Levetiracetam (Keppra) 1,500 mg PO BID [facility] Last Admin: 03/06/19 21:52 Dose: 1,500 mg Documented by: Loratadine (Claritin) 10 mg PO DAILY [facility] Pantoprazole Sodium (Protonix) 40 mg PO QDAY [facility] Polyethylene Glycol (Miralax 3350) 17 gm FEEDTUBE QDAY [facility] Senna (Senokot) 17.2 mg PO QHS [facility] Last Admin: 03/06/19 21:51 Dose: 17.2 mg Documented by: Sucralfate (Carafate) 1 gm PO Q8H [facility] Last Admin: 03/07/19 06:03 Dose: Not Given Documented by: Trimethoprim/Sulfamethoxazole (Bactrim Ds) 1 each PO BID [facility] Stop: 03/12/19 22:01 Last Admin: 03/06/19 21:51 Dose: 1 each Documented by: Review of Systems Constitutional: weakness, no weight loss, no weight gain Ears, nose, mouth and throat: no nasal congestion, no nasal discharge Cardiovascular: no chest pain, no palpitations, no shortness of breath Respiratory: no cough, no shortness of breath Gastrointestinal: nausea, vomiting, no abdominal pain Genitourinary Female: no pelvic pain, no dysuria Musculoskeletal: arthritis, no myalgias Integumentary: no rash, no lesions Neurological: paralysis (Paraplegia), weakness, seizures Psychiatric: anxiety, depression Endocrine: no cold intolerance, no heat intolerance, no polydipsia, no polyuria Hematologic/Lymphatic: no easy bruising, no easy bleeding Allergic/Immunologic: no urticaria, no allergic rhinitis Exam - Constitutional Vitals: Temp Pulse Resp BP Pulse Ox 98.3 F 92 H 18 147/83 95 03/06/19 22:00 03/06/19 22:00 03/06/19 22:00 03/06/19 22:00 03/06/19 22:00 General appearance: Present: mild distress, well-nourished, obese - EENT Eyes: Present: PERRL, EOM intact - Neck Neck: Present: supple, normal ROM - Respiratory Respiratory effort: normal Respiratory: bilateral: diminished, negative: rales, rhonchi, wheezing - Cardiovascular Rhythm: regular Heart Sounds: Present: S1 & S2 - Extremities Extremities: no ischemia, No edema - Abdominal General gastrointestinal: Present: soft, non-tender, non-distended, normal bowel sounds, other (PEG tube in place) - Integumentary Integumentary: Present: clear, warm - Musculoskeletal Musculoskeletal: generalized weakness, other (Paraplegia) - Psychiatric Psychiatric: appropriate mood/affect, depressed - Neurologic Neurologic: other (Paraplegia and residual weakness) Assessment and Plan --Suicidal ideation/attempt; Management per psych --History of bipolar disorder; management per psych --History of seizure disorder; seizure precautions Continue antiepileptic medications and supportive care --Dysphagia status post PEG placement; Patient tolerates soft diet, PEG feeds as needed --Acute gastritis; antiemetics and supportive care --History of chronic constipation; stool softener Colace daily --History of paraplegia; residual weakness Supportive care --GERD; Protonix --Peripheral neuropathy; on gabapentin --DVT prophylaxis; SCDs while resting Subcu heparin --Full CODE STATUS Monitor closely and adjust the management as needed Plan of care reviewed with the patient and her nurse Thank you for this consultation, will follow the patient along with you as needed
[2019-03-07] MEDS: SULFAMETHOXAZOLE/TRIMETHOPRIM 800/160MG DS TAB PO SCH ×2 (12:17→22:32)
[2019-03-07] MEDS: LORATADINE (NF) 10 MG TAB PO SCH (12:18)
[2019-03-07] MEDS: CITALOPRAM 10 MG TAB PO SCH (12:18)
[2019-03-07] MEDS: clonazePAM 0.5 MG TAB PO SCH ×2 (12:18→22:31)
[2019-03-07] MEDS: levETIRAcetam 500 MG TAB PO SCH ×2 (12:19→22:31)
[2019-03-07] MEDS: FLUTICASONE PROPIONATE NASAL SPRAY 16 GM NS SCH (12:19)
[2019-03-07] MEDS: POLYETHYLENE GLYCOL 3350 17 GM POWDER FEEDTUBE SCH (12:24)
[2019-03-07] MEDS: DIVALPROEX SPRINKLE 125 MG CAP FEEDTUBE SCH ×2 (12:56→22:31)
[2019-03-07] MEDS: LANSOPRAZOLE 30 MG SOLUTAB FEEDTUBE SCH (17:02)
[2019-03-07] MEDS ORDERED: ONDANSETRON 4 MG/2 ML INJ IV PRN (18:42)
[2019-03-07] MEDS: ONDANSETRON 4 MG ODT TAB PO PRN (22:26)
[2019-03-07] MEDS: SENNOSIDES 8.6 MG TAB PO SCH (22:32)
[2019-03-08] MEDS: SUCRALFATE 1 GM TAB PO SCH ×3 (00:26→18:08)
[2019-03-08] MEDS: HALOPERIDOL LACTATE 5 MG/1 ML INJ IM PRN (01:12)
[2019-03-08] MEDS: GABAPENTIN 100 MG CAP PO SCH ×3 (05:26→22:30)
[2019-03-08] MEDS: ONDANSETRON 4 MG ODT TAB PO PRN ×3 (05:28→19:06)
[2019-03-08] MEDS: HYPROMELLOSE 0.5% OPHTH SOLN 15 ML OU SCH ×3 (07:48→20:44)
[2019-03-08] MEDS ORDERED: PANTOPRAZOLE 20 MG TAB PO SCH (10:00)
--- NOTE | 2019-03-08 10:06 | Progress Note ---
Subjective Date of service: 03/08/19 Principal diagnosis: Bipolar 1 disorder, depressed, severe Subjective Comment: Patient is alert and oriented x3, calm and cooperative, denies SI/HI, denies A/V/H, patient is bed bound, total care, 1 person to 2 persons assist, bedtime meds given via peg tube, peg tube flushed before and after medication, c/o of nausea and vomiting, coffee brown emesis noted, zofran odt 4mg given at 2226 with effect, vomited x1 after being medicated, two cups of apple juice given to pt, pt c/o of being restless and unable to sleep, haldol IM given as pt has been nauseated at 0112, medication effective, pt went to sleep after about 30 minutes, no distress noted, will continue to monitor for safety, q15min on going. In my morning interview with the patient, the patient stated that her mood was not good. The patient states she is not eating or sleeping well, and she has been throwing up for 3 days. The patient stated that she has no thoughts of suicide, does not want to to harm anyone, and has no fear of being harmed. The patient also stated she was ready to leave. Objective - Criteria for Continued Treatment Criteria for Continued Treatment: Improving Level of Functioning, Stablizing Level of Functioning Assessment and Plan - Patient Problems (1) Bipolar 1 disorder, depressed, severe Current Visit: Yes Status: Acute Plan to address problem: Patient will be admitted for inpatient psychiatric evaluation, medication adjustment and close monitoring The patient's behavior, mood, sleep and appetite will be closely monitored. Patient will be enrolled in individual and group therapeutic sessions and encouraged to attend. Patient will be provided with a safe and structured environment. Patient's physical health needs will be addressed by the Hospitalist. Hospitalist Consulted Labs including CBC, CMP, Lipid profile and Hemoglobin A1C ordered Social Assessment will be completed and the Motor Car[employer] Inspector will work with patient and family to ensure a suitable and safe disposition Medication adjustment will be made as clinically indicated The patient agreed on the treatment plan, understood the risk, benefit, alternative treatment, potential consequence of no treatment, and gave informed consent. Medications and Allergies Allergies Allergy/AdvReac Type Severity Reaction Status Date / Time Penicillins Allergy Itching Verified 10/11/18 12:05 promethazine HCl Allergy Hives Verified 07/13/19 12:05 [From Phenergan] Home Medications Medication Instructions Recorded Confirmed Last Taken Type ALPRAZolam [Xanax TAB] 0.5 mg PO BID 03/31/15 03/06/19 1 Day Ago History ~03/30/15 Bisacodyl [Dulcolax suppos] 10 mg [place] QDAY PRN 03/31/15 03/06/19 1 Day Ago History ~03/30/15 Butalb/Acetaminophen/Caffeine 1 cap PO Q4H PRN 03/31/15 03/06/19 1 Day Ago History [Fioricet 50-300-40 mg CAP] ~03/30/15 Cetirizine HCl [ZyrTEC 10mg cap] 10 mg PO DAILY 03/31/15 03/06/19 1 Day Ago History ~03/30/15 Citalopram [Celexa] 30 mg PO QDAY 03/31/15 03/06/19 1 Day Ago History ~03/30/[address] [Depakote Dr] 500 mg PO BID 03/31/15 03/06/19 1 Day Ago History ~03/30/15 Fluticasone [Flonase] 2 spray NS QDAY 03/31/15 03/06/19 1 Day Ago History ~03/30/15 Gabapentin 100 mg PO Q8HR 03/31/15 03/06/19 1 Day Ago History ~03/30/15 Haloperidol Lactate [Haldol] 1 mg IM Q6H PRN 03/31/15 03/06/19 1 Day Ago History ~03/30/15 Haloperidol [Haldol] 5 mg PO QHS PRN 03/31/15 03/06/19 1 Day Ago History ~03/30/15 Melatonin/Pyridoxine [Melatonin 5 1 each PO QHS 03/31/15 03/06/19 1 Day Ago History mg Tablet] ~03/30/15 Ondansetron [Zofran TAB] 4 mg PO Q6H PRN 03/31/15 03/06/19 1 Day Ago History ~03/30/15 Polyvinyl Alcohol [Artificial 15 ml OP TID 03/31/15 03/06/19 1 Day Ago History Tears] ~03/30/15 Sennosides Tab [Senokot] 17.2 mg PO QHS 03/31/15 03/06/19 1 Day Ago History ~03/30/15 levETIRAcetam [Keppra TAB] 1,500 mg PO BID 03/31/15 03/06/19 1 Day Ago History ~03/30/15 Pantoprazole [Protonix TAB] 40 mg PO QDAY #30 tablet 04/04/15 03/06/19 Unknown Rx Sucralfate [Carafate] 1 gm PO Q8H 30 Days tablet 04/04/15 03/06/19 Unknown Rx Polyethylene Glycol 3350 [Miralax 17 gm FEEDTUBE QDAY powd.pack 06/24/18 03/06/19 03/05/19 Rx 3350] Neomycn/Bacitrc/Polymyx/Pramox 1 applicatio TP BID 10 Days #1 10/11/18 03/06/19 Unknown Rx [Triple Antibiotic Plus Ointmnt] oint...g. Sulfamethoxazole/Trimethoprim 1 each PO BID 7 Days #14 tablet 10/11/18 03/06/19 Unknown Rx [Bactrim DS TAB] Active Meds: Active Medications Acetaminophen/Butalbital/Caffeine (Fioricet) 1 tab PO Q4H PRN PRN Reason: Headache Artificial Tears (Isopto Tears 0.5%) 2 drops OU TID [facility] Last Admin: 03/08/19 07:48 Dose: 2 drops Documented by: Bisacodyl (Dulcolax) 10 mg [place] QDAY PRN PRN Reason: Constipation Citalopram Hydrobromide (Celexa) 30 mg PO DAILY [facility] Last Admin: 03/07/19 12:18 Dose: 30 mg Documented by: Clonazepam (Klonopin) 0.5 mg PO BID [facility] Last Admin: 03/07/19 22:31 Dose: 0.5 mg Documented by: Divalproex Sodium (Depakote Sprinkle) 500 mg FEEDTUBE BID [facility] Last Admin: 03/07/19 22:31 Dose: 500 mg Documented by: Fluticasone Propionate (Flonase) 100 mcg NS QDAY [facility] Last Admin: 03/07/19 12:19 Dose: 100 mcg Documented by: Gabapentin (Gabapentin) 100 mg PO Q8HR [facility] Last Admin: 03/08/19 05:26 Dose: 100 mg Documented by: Haloperidol (Haldol) 5 mg PO QHS PRN PRN Reason: Agitation Haloperidol Lactate (Haldol) 1 mg IM Q6H PRN PRN Reason: Agitation Last Admin: 03/08/19 01:12 Dose: 1 mg Documented by: Lansoprazole (Prevacid Solutab) 30 mg FEEDTUBE QDAY [facility] Last Admin: 03/07/19 17:02 Dose: 30 mg Documented by: Levetiracetam (Keppra) 1,500 mg PO BID [facility] Last Admin: 03/07/19 22:31 Dose: 1,500 mg Documented by: Loratadine (Claritin) 10 mg PO DAILY [facility] Last Admin: 03/07/19 12:18 Dose: 10 mg Documented by: Ondansetron HCl (Zofran Odt) 4 mg PO Q6H PRN PRN Reason: Nausea And Vomiting Last Admin: 03/08/19 05:28 Dose: 4 mg Documented by: Polyethylene Glycol (Miralax 3350) 17 gm FEEDTUBE QDAY [facility] Last Admin: 03/07/19 12:24 Dose: 17 gm Documented by: Senna (Senokot) 17.2 mg PO QHS [facility] Last Admin: 03/07/19 22:32 Dose: 17.2 mg Documented by: Sucralfate (Carafate) 1 gm PO Q8H [facility] Last Admin: 03/08/19 07:49 Dose: 1 gm Documented by: Trimethoprim/Sulfamethoxazole (Bactrim Ds) 1 each PO BID [facility] Stop: 03/12/19 22:01 Last Admin: 03/07/19 22:32 Dose: 1 each Documented by: Results - Results Labs/Vitals: Laboratory Last Values Hemoglobin A1c 5.2 % (4-6) 03/06/19 12:08 Triglycerides 73 mg/dL (2-149) 03/06/19 21:18 Cholesterol 157 mg/dL (50-199) 03/06/19 21:18 LDL Cholesterol Direct 102 mg/dL (50-130) 03/06/19 21:18 HDL Cholesterol 45 mg/dL (40-59) 03/06/19 21:18 Cholesterol/HDL Ratio 3.48 % 03/06/19 21:18 Last Vital Signs Temp 97.0 F L 03/08/19 07:45 Pulse 75 03/08/19 07:45 Resp 16 03/08/19 07:45 BP 146/77 03/08/19 07:45 Pulse Ox 97 03/08/19 07:45 Mental Status Exam - Vital signs Last Vital Signs Temp 97.0 F L 03/08/19 07:45 Pulse 75 03/08/19 07:45 Resp 16 03/08/19 07:45 BP 146/77 03/08/19 07:45 Pulse Ox 97 03/08/19 07:45 - Exam Orientation: time, place, person Affect: normal Mood: congruent with affect Thought content: other (No SI/HI) Thought Process: Intact Perceptions: none Speech: slow Concentration: focused Motor activity: lethargic Level of consciousness: alert Memory: Intact Interaction: cooperative
[2019-03-08] MEDS: DIVALPROEX SPRINKLE 125 MG CAP FEEDTUBE SCH ×2 (11:14→22:29)
[2019-03-08] MEDS: LANSOPRAZOLE 30 MG SOLUTAB FEEDTUBE SCH (11:16)
[2019-03-08] MEDS: SULFAMETHOXAZOLE/TRIMETHOPRIM 800/160MG DS TAB PO SCH ×2 (11:17→22:29)
[2019-03-08] MEDS: CITALOPRAM 10 MG TAB PO SCH (11:17)
[2019-03-08] MEDS: LORATADINE (NF) 10 MG TAB PO SCH (11:18)
[2019-03-08] MEDS: levETIRAcetam 500 MG TAB PO SCH ×2 (11:18→22:30)
[2019-03-08] MEDS: clonazePAM 0.5 MG TAB PO SCH ×2 (11:18→22:30)
[2019-03-08] MEDS: POLYETHYLENE GLYCOL 3350 17 GM POWDER FEEDTUBE SCH (11:25)
[2019-03-08] MEDS: FLUTICASONE PROPIONATE NASAL SPRAY 16 GM NS SCH (11:25)
[2019-03-08] MEDS: SENNOSIDES 8.6 MG TAB PO SCH (22:30)
[2019-03-09] MEDS: SUCRALFATE 1 GM TAB PO SCH ×3 (00:39→18:21)
[2019-03-09] MEDS: ONDANSETRON 4 MG ODT TAB PO PRN (04:05)
[2019-03-09] MEDS: GABAPENTIN 100 MG CAP PO SCH ×3 (05:55→21:22)
--- NOTE | 2019-03-09 11:09 | Progress Note ---
Subjective Date of service: 03/09/19 Principal diagnosis: Bipolar 1 disorder, depressed, severe Subjective Comment: Patient reviewed this morning. Per Nursing records, patient is alert and oriented x3, calm and cooperative, denies SI/HI, denies A/V/H, patient is bed bound, total care, 1 person to 2 persons assist, bedtime meds given via peg tube, peg tube flushed before and after medication, c/o of nausea and vomiting, coffee brown emesis noted, zofran odt 4mg given at 2226 with effect, vomited x1 after being medicated, two cups of apple juice given to pt, pt c/o of being restless and unable to sleep, haldol IM given as pt has been nauseated at 0112, medication effective, pt went to sleep after about 30 minutes, no distress noted, will continue to monitor for safety, q15min on going. In my interview with the patient this morning, she states she is not eating or sleeping well, and she is still sick. She denies being depressed. The patient stated that she has no thoughts of suicide, does not want to to harm anyone, and has no fear of being harmed. The patient also stated she was ready to leave. Mental Status Exam Orientation: time, place, person Affect: normal Mood: congruent with affect Thought content: No SI/HI Thought Process: Intact Perceptions: none Speech: slow Concentration: focused Motor activity: lethargic Level of consciousness: alert Memory: Intact Interaction: cooperative - Criteria for Continued Treatment Criteria for Continued Treatment: Improving Level of Functioning, Stablizing Level of Functioning Assessment and Plan - Patient Problems (1) Bipolar 1 disorder, depressed, severe Current Visit: Yes Status: Acute Plan to address problem: Patient will be admitted for inpatient psychiatric evaluation, medication adjustment and close monitoring The patient's behavior, mood, sleep and appetite will be closely monitored. Patient will be enrolled in individual and group therapeutic sessions and encouraged to attend. Patient will be provided with a safe and structured environment. Patient's physical health needs will be addressed by the Hospitalist. Hospitalist Consulted Social Assessment will be completed and the Speech Communication Professor will work with patient and family to ensure a suitable and safe disposition Medication adjustment will be made as clinically indicated The patient agreed on the treatment plan, understood the risk, benefit, alternative treatment, potential consequence of no treatment, and gave informed consent. Assessment and Plan - Patient Problems (1) Bipolar 1 disorder, depressed, severe Current Visit: Yes Status: Acute Medications and Allergies Allergies Allergy/AdvReac Type Severity Reaction Status Date / Time Penicillins Allergy Itching Verified 10/11/18 12:05 promethazine HCl Allergy Hives Verified 10/11/18 12:05 [From Phenergan] Home Medications Medication Instructions Recorded Confirmed Last Taken Type ALPRAZolam [Xanax TAB] 0.5 mg PO BID 03/31/15 03/06/19 1 Day Ago History ~03/30/15 Bisacodyl [Dulcolax suppos] 10 mg [place] QDAY PRN 03/31/15 03/06/19 1 Day Ago History ~03/30/15 Butalb/Acetaminophen/Caffeine 1 cap PO Q4H PRN 03/31/15 03/06/19 1 Day Ago History [Fioricet 50-300-40 mg CAP] ~03/30/15 Cetirizine HCl [ZyrTEC 10mg cap] 10 mg PO DAILY 03/31/15 03/06/19 1 Day Ago History ~03/30/15 Citalopram [Celexa] 30 mg PO QDAY 03/31/15 03/06/19 1 Day Ago History ~03/30/[address] [Depakote Dr] 500 mg PO BID 03/31/15 03/06/19 1 Day Ago History ~03/30/15 Fluticasone [Flonase] 2 spray NS QDAY 03/31/15 03/06/19 1 Day Ago History ~03/30/15 Gabapentin 100 mg PO Q8HR 03/31/15 03/06/19 1 Day Ago History ~03/30/15 Haloperidol Lactate [Haldol] 1 mg IM Q6H PRN 03/31/15 03/06/19 1 Day Ago History ~03/30/15 Haloperidol [Haldol] 5 mg PO QHS PRN 03/31/15 03/06/19 1 Day Ago History ~03/30/15 Melatonin/Pyridoxine [Melatonin 5 1 each PO QHS 03/31/15 03/06/19 1 Day Ago History mg Tablet] ~03/30/15 Ondansetron [Zofran TAB] 4 mg PO Q6H PRN 03/31/15 03/06/19 1 Day Ago History ~03/30/15 Polyvinyl Alcohol [Artificial 15 ml OP TID 03/31/15 03/06/19 1 Day Ago History Tears] ~03/30/15 Sennosides Tab [Senokot] 17.2 mg PO QHS 03/31/15 03/06/19 1 Day Ago History ~03/30/15 levETIRAcetam [Keppra TAB] 1,500 mg PO BID 03/31/15 03/06/19 1 Day Ago History ~03/30/15 Pantoprazole [Protonix TAB] 40 mg PO QDAY #30 tablet 04/04/15 03/06/19 Unknown Rx Sucralfate [Carafate] 1 gm PO Q8H 30 Days tablet 04/04/15 03/06/19 Unknown Rx Polyethylene Glycol 3350 [Miralax 17 gm FEEDTUBE QDAY powd.pack 06/24/18 03/06/19 03/05/19 Rx 3350] Neomycn/Bacitrc/Polymyx/Pramox 1 applicatio TP BID 10 Days #1 10/11/18 03/06/19 Unknown Rx [Triple Antibiotic Plus Ointmnt] oint...g. Sulfamethoxazole/Trimethoprim 1 each PO BID 7 Days #14 tablet 10/11/18 03/06/19 Unknown Rx [Bactrim DS TAB] Active Meds: Active Medications Acetaminophen/Butalbital/Caffeine (Fioricet) 1 tab PO Q4H PRN PRN Reason: Headache Artificial Tears (Isopto Tears 0.5%) 2 drops OU TID [facility] Last Admin: 03/08/19 20:44 Dose: 2 drops Documented by: Bisacodyl (Dulcolax) 10 mg [place] QDAY PRN PRN Reason: Constipation Citalopram Hydrobromide (Celexa) 30 mg PO DAILY [facility] Last Admin: 03/08/19 11:17 Dose: 30 mg Documented by: Clonazepam (Klonopin) 0.5 mg PO BID [facility] Last Admin: 03/08/19 22:30 Dose: 0.5 mg Documented by: Divalproex Sodium (Depakote Sprinkle) 500 mg FEEDTUBE BID [facility] Last Admin: 03/08/19 22:29 Dose: 500 mg Documented by: Fluticasone Propionate (Flonase) 100 mcg NS QDAY [facility] Last Admin: 03/08/19 11:25 Dose: Not Given Documented by: Gabapentin (Gabapentin) 100 mg PO Q8HR [facility] Last Admin: 03/09/19 05:55 Dose: 100 mg Documented by: Haloperidol (Haldol) 5 mg PO QHS PRN PRN Reason: Agitation Haloperidol Lactate (Haldol) 1 mg IM Q6H PRN PRN Reason: Agitation Last Admin: 03/08/19 01:12 Dose: 1 mg Documented by: Lansoprazole (Prevacid Solutab) 30 mg FEEDTUBE QDAY [facility] Last Admin: 03/08/19 11:16 Dose: 30 mg Documented by: Levetiracetam (Keppra) 1,500 mg PO BID [facility] Last Admin: 03/08/19 22:30 Dose: 1,500 mg Documented by: Loratadine (Claritin) 10 mg PO DAILY [facility] Last Admin: 03/08/19 11:18 Dose: 10 mg Documented by: Ondansetron HCl (Zofran Odt) 4 mg PO Q6H PRN PRN Reason: Nausea And Vomiting Last Admin: 03/09/19 04:05 Dose: 4 mg Documented by: Polyethylene Glycol (Miralax 3350) 17 gm FEEDTUBE QDAY [facility] Last Admin: 03/08/19 11:25 Dose: 17 gm Documented by: Senna (Senokot) 17.2 mg PO QHS [facility] Last Admin: 03/08/19 22:30 Dose: 17.2 mg Documented by: Sucralfate (Carafate) 1 gm PO Q8H [facility] Last Admin: 03/09/19 00:39 Dose: 1 gm Documented by: Trimethoprim/Sulfamethoxazole (Bactrim Ds) 1 each PO BID [facility] Stop: 03/12/19 22:01 Last Admin: 03/08/19 22:29 Dose: 1 each Documented by: Results - Results Labs/Vitals: Laboratory Last Values Hemoglobin A1c 5.2 % (4-6) 03/06/19 12:08 Triglycerides 73 mg/dL (2-149) 03/06/19 21:18 Cholesterol 157 mg/dL (50-199) 03/06/19 21:18 LDL Cholesterol Direct 102 mg/dL (50-130) 03/06/19 21:18 HDL Cholesterol 45 mg/dL (40-59) 03/06/19 21:18 Cholesterol/HDL Ratio 3.48 % 03/06/19 21:18 Last Vital Signs Temp 99.9 F H 03/08/19 20:11 Pulse 79 03/08/19 20:11 Resp 20 03/08/19 20:11 BP 139/72 03/08/19 20:11 Pulse Ox 93 03/08/19 20:11
[2019-03-09] MEDS ORDERED: LORazepam 2 MG/ML VIAL IV PRN (11:30)
[2019-03-09] MEDS: FLUTICASONE PROPIONATE NASAL SPRAY 16 GM NS SCH (14:06)
[2019-03-09] MEDS: levETIRAcetam 500 MG TAB PO SCH ×2 (14:08→21:21)
[2019-03-09] MEDS: DIVALPROEX SPRINKLE 125 MG CAP FEEDTUBE SCH ×2 (14:08→21:23)
[2019-03-09] MEDS: SULFAMETHOXAZOLE/TRIMETHOPRIM 800/160MG DS TAB PO SCH ×2 (14:09→21:23)
[2019-03-09] MEDS: LORATADINE (NF) 10 MG TAB PO SCH (14:10)
[2019-03-09] MEDS: POLYETHYLENE GLYCOL 3350 17 GM POWDER FEEDTUBE SCH (14:10)
[2019-03-09] MEDS: LANSOPRAZOLE 30 MG SOLUTAB FEEDTUBE SCH (14:10)
[2019-03-09] MEDS: HYPROMELLOSE 0.5% OPHTH SOLN 15 ML OU SCH ×3 (14:11→21:24)
[2019-03-09] MEDS: CITALOPRAM 10 MG TAB PO SCH (14:11)
[2019-03-09] MEDS: clonazePAM 0.5 MG TAB PO SCH ×2 (14:12→21:21)
--- NOTE | 2019-03-09 19:04 | Progress Note ---
Assessment and Plan Assessment and plan: --? Breakthrough seizure; Continue seizure precautions, antiepileptic medications IM Ativan as needed, supportive care --Constipation; milk of magnesia Daily and as needed --Suicidal ideation/attempt; Management per psych --History of bipolar disorder; management per psych --History of seizure disorder; seizure precautions Continue antiepileptic medications and supportive care --Dysphagia status post PEG placement; Patient tolerates soft diet, PEG feeds as needed --Acute gastritis; antiemetics and supportive care --History of chronic constipation; stool softener Colace daily --History of paraplegia; residual weakness Supportive care --GERD; Protonix --Peripheral neuropathy; on gabapentin --DVT prophylaxis; SCDs while resting Subcu heparin --Full CODE STATUS Monitor closely and adjust the management as needed History Interval history: Patient had an episode of seizure this morning Patient has history of seizure disorder on antiepileptic medication Nurse reports that she is receiving antiseizure medications regularly When I evaluated the patient patient is alert and awake No postictal stage, no distress Vital signs noted Hospitalist Physical - Constitutional Vitals: Temp Pulse Resp BP Pulse Ox 99.9 F H 79 20 139/72 93 03/08/19 20:11 03/08/19 20:11 03/08/19 20:11 03/08/19 20:11 03/08/19 20:11 General appearance: Present: no acute distress, well-nourished - EENT Eyes: Present: PERRL, EOM intact - Neck Neck: Present: supple, normal ROM - Respiratory Respiratory effort: normal Respiratory: bilateral: diminished, negative: rales, rhonchi, wheezing - Cardiovascular Rhythm: regular Heart Sounds: Present: S1 & S2 - Extremities Extremities: no ischemia, No edema - Abdominal General gastrointestinal: soft, non-tender, non-distended, normal bowel sounds, other (PEG in place) - Integumentary Integumentary: Present: clear, warm - Psychiatric Psychiatric: appropriate mood/affect, cooperative - Neurologic Neurologic: moves all extremities Results - Labs Labs: Laboratory Last Values Hemoglobin A1c 5.2 % (4-6) 03/06/19 12:08 Triglycerides 73 mg/dL (2-149) 03/06/19 21:18 Cholesterol 157 mg/dL (50-199) 03/06/19 21:18 LDL Cholesterol Direct 102 mg/dL (50-130) 03/06/19 21:18 HDL Cholesterol 45 mg/dL (40-59) 03/06/19 21:18 Cholesterol/HDL Ratio 3.48 % 03/06/19 21:18 Active Medications - Current Medications Current Medications: Generic Name Dose Route Start Last Admin Trade Name Freq PRN Reason Stop Dose Admin Acetaminophen/Butalbital/Caffeine 1 tab 03/06/19 17:34 Fioricet PO Q4H PRN Headache Artificial Tears 2 drops 03/06/19 20:00 03/09/19 18:21 Isopto Tears 0.5% OU 2 drops TID MICHEAL Administration Bisacodyl 10 mg 03/06/19 15:39 Dulcolax [place] QDAY PRN Constipation Citalopram Hydrobromide 30 mg 03/07/19 10:00 03/09/19 14:11 Celexa PO 30 mg DAILY MICHEAL Administration Clonazepam 0.5 mg 03/06/19 22:00 03/09/19 14:12 Klonopin PO 0.5 mg BID MICHEAL Administration Divalproex Sodium 500 mg 03/07/19 10:00 03/09/19 14:08 Depakote Sprinkle FEEDTUBE 500 mg BID MICHEAL Administration Fluticasone Propionate 100 mcg 03/07/19 10:00 03/09/19 14:06 Flonase NS 100 mcg QDAY MICHEAL Administration Gabapentin 100 mg 03/06/19 22:00 03/09/19 14:21 Gabapentin PO 100 mg Q8HR MICHEAL Administration Haloperidol 5 mg 03/06/19 15:39 Haldol PO QHS PRN Agitation Haloperidol Lactate 1 mg 03/06/19 15:39 03/08/19 01:12 Haldol IM 1 mg Q6H PRN Administration Agitation Lansoprazole 30 mg 03/07/19 13:00 03/09/19 14:10 Prevacid Solutab FEEDTUBE 30 mg QDAY MICHEAL Administration Levetiracetam 1,500 mg 03/06/19 22:00 03/09/19 14:08 Keppra PO 1,500 mg BID MICHEAL Administration Loratadine 10 mg 03/07/19 10:00 03/09/19 14:10 Claritin PO 10 mg DAILY MICHEAL Administration Lorazepam 2 mg 03/09/19 11:30 Ativan IV Q4H PRN Seizures Ondansetron HCl 4 mg 03/07/19 22:03 03/09/19 04:05 Zofran Odt PO 4 mg Q6H PRN Administration Nausea And Vomiting Polyethylene Glycol 17 gm 03/07/19 10:00 03/09/19 14:10 Miralax 3350 FEEDTUBE 17 gm QDAY MICHEAL Administration Senna 17.2 mg 03/06/19 22:00 03/08/19 22:30 Senokot PO 17.2 mg QHS MICHEAL Administration Sucralfate 1 gm 03/06/19 16:00 03/09/19 18:21 Carafate PO 1 gm Q8H MICHEAL Administration Trimethoprim/Sulfamethoxazole 1 each 03/06/19 22:00 03/09/19 14:09 Bactrim Ds PO 03/12/19 22:01 1 each BID MICHEAL Administration
[2019-03-09] MEDS ORDERED: MAGNESIUM HYDROXIDE (MOM) ORAL LIQD UDC PO PRN (19:07)
[2019-03-09] MEDS ORDERED: MAGNESIUM HYDROXIDE (MOM) ORAL LIQD UDC PO ONE (19:07)
[2019-03-09] MEDS: SENNOSIDES 8.6 MG TAB PO SCH (21:23)
[2019-03-10] MEDS: SUCRALFATE 1 GM TAB PO SCH ×3 (00:11→17:06)
[2019-03-10] MEDS: HALOPERIDOL LACTATE 5 MG/1 ML INJ IM PRN (00:38)
[2019-03-10] MEDS: GABAPENTIN 100 MG CAP PO SCH ×2 (06:27→17:00)
--- NOTE | 2019-03-10 07:52 | Progress Note ---
Subjective Date of service: 03/10/19 Principal diagnosis: Bipolar 1 disorder, depressed, severe Subjective Comment: Patient reviewed this morning. Shift report obtained on pt. Pt received in bed relaxing. Reported her bed is wet and she needed to be changed and care given promptly. No sz. or vomiting observed or reported. In my interview with the patient this morning, Mental Status Exam Orientation: time, place, person Affect: normal Mood: congruent with affect Thought content: No SI/HI Thought Process: Intact Perceptions: none Speech: slow Concentration: focused Motor activity: lethargic Level of consciousness: alert Memory: Intact Interaction: cooperative - Criteria for Continued Treatment Criteria for Continued Treatment: Improving Level of Functioning, Stablizing Level of Functioning Assessment and Plan - Patient Problems (1) Bipolar 1 disorder, depressed, severe Current Visit: Yes Status: Acute Plan to address problem: Patient will be admitted for inpatient psychiatric evaluation, medication adjustment and close monitoring The patient's behavior, mood, sleep and appetite will be closely monitored. Patient will be enrolled in individual and group therapeutic sessions and encouraged to attend. Patient will be provided with a safe and structured environment. Patient's physical health needs will be addressed by the Hospitalist. Hospitalist Consulted Social Assessment will be completed and the Lens Polisher will work with patient and family to ensure a suitable and safe disposition Medication adjustment will be made as clinically indicated The patient agreed on the treatment plan, understood the risk, benefit, alternative treatment, potential consequence of no treatment, and gave informed consent. Assessment and Plan - Patient Problems (1) Bipolar 1 disorder, depressed, severe Current Visit: Yes Status: Acute Medications and Allergies Allergies Allergy/AdvReac Type Severity Reaction Status Date / Time Penicillins Allergy Itching Verified 10/11/18 12:05 promethazine HCl Allergy Hives Verified 10/11/18 12:05 [From Phenergan] Home Medications Medication Instructions Recorded Confirmed Last Taken Type ALPRAZolam [Xanax TAB] 0.5 mg PO BID 03/31/15 03/10/19 1 Day Ago History ~03/30/15 Bisacodyl [Dulcolax suppos] 10 mg [place] QDAY PRN 03/31/15 03/10/19 1 Day Ago History ~03/30/15 Butalb/Acetaminophen/Caffeine 1 cap PO Q4H PRN 03/31/15 03/10/19 1 Day Ago History [Fioricet 50-300-40 mg CAP] ~03/30/15 Cetirizine HCl [ZyrTEC 10mg cap] 10 mg PO DAILY 03/31/15 03/10/19 1 Day Ago History ~03/30/15 Citalopram [Celexa] 30 mg PO QDAY 03/31/15 03/10/19 1 Day Ago History ~03/30/[address] [Depakote Dr] 500 mg PO BID 03/31/15 03/10/19 1 Day Ago History ~03/30/15 Fluticasone [Flonase] 2 spray NS QDAY 03/31/15 03/10/19 1 Day Ago History ~03/30/15 Gabapentin 100 mg PO Q8HR 03/31/15 03/10/19 1 Day Ago History ~03/30/15 Haloperidol Lactate [Haldol] 1 mg IM Q6H PRN 03/31/15 03/10/19 1 Day Ago History ~03/30/15 Haloperidol [Haldol] 5 mg PO QHS PRN 03/31/15 03/10/19 1 Day Ago History ~03/30/15 Melatonin/Pyridoxine [Melatonin 5 1 each PO QHS 03/31/15 03/10/19 1 Day Ago History mg Tablet] ~03/30/15 Ondansetron [Zofran TAB] 4 mg PO Q6H PRN 03/31/15 03/10/19 1 Day Ago History ~03/30/15 Polyvinyl Alcohol [Artificial 15 ml OP TID 03/31/15 03/10/19 1 Day Ago History Tears] ~03/30/15 Sennosides Tab [Senokot] 17.2 mg PO QHS 03/31/15 03/10/19 1 Day Ago History ~03/30/15 levETIRAcetam [Keppra TAB] 1,500 mg PO BID 03/31/15 03/10/19 1 Day Ago History ~03/30/15 Pantoprazole [Protonix TAB] 40 mg PO QDAY #30 tablet 04/04/15 03/10/19 Unknown Rx Sucralfate [Carafate] 1 gm PO Q8H 30 Days tablet 04/04/15 03/10/19 Unknown Rx Polyethylene Glycol 3350 [Miralax 17 gm FEEDTUBE QDAY powd.pack 03/26/19 12/10/19 12/05/19 Rx 3350] Neomycn/Bacitrc/Polymyx/Pramox 1 applicatio TP BID 10 Days #1 10/11/18 03/10/19 Unknown Rx [Triple Antibiotic Plus Ointmnt] oint...g. Sulfamethoxazole/Trimethoprim 1 each PO BID 7 Days #14 tablet 10/11/18 03/10/19 Unknown Rx [Bactrim DS TAB] Active Meds: Active Medications Acetaminophen/Butalbital/Caffeine (Fioricet) 1 tab PO Q4H PRN PRN Reason: Headache Artificial Tears (Isopto Tears 0.5%) 2 drops OU TID [facility] Last Admin: 03/09/19 21:24 Dose: 2 drops Documented by: Bisacodyl (Dulcolax) 10 mg [place] QDAY PRN PRN Reason: Constipation Citalopram Hydrobromide (Celexa) 30 mg PO DAILY [facility] Last Admin: 03/09/19 14:11 Dose: 30 mg Documented by: Clonazepam (Klonopin) 0.5 mg PO BID [facility] Last Admin: 03/09/19 21:21 Dose: 0.5 mg Documented by: Divalproex Sodium (Depakote Sprinkle) 500 mg FEEDTUBE BID [facility] Last Admin: 03/09/19 21:23 Dose: 500 mg Documented by: Fluticasone Propionate (Flonase) 100 mcg NS QDAY [facility] Last Admin: 03/09/19 14:06 Dose: 100 mcg Documented by: Gabapentin (Gabapentin) 100 mg PO Q8HR [facility] Last Admin: 03/10/19 06:27 Dose: 100 mg Documented by: Haloperidol (Haldol) 5 mg PO QHS PRN PRN Reason: Agitation Haloperidol Lactate (Haldol) 1 mg IM Q6H PRN PRN Reason: Agitation Last Admin: 03/10/19 00:38 Dose: 1 mg Documented by: Lansoprazole (Prevacid Solutab) 30 mg FEEDTUBE QDAY [facility] Last Admin: 03/09/19 14:10 Dose: 30 mg Documented by: Levetiracetam (Keppra) 1,500 mg PO BID [facility] Last Admin: 03/09/19 21:21 Dose: 1,500 mg Documented by: Loratadine (Claritin) 10 mg PO DAILY [facility] Last Admin: 03/09/19 14:10 Dose: 10 mg Documented by: Lorazepam (Ativan) 2 mg IV Q4H PRN PRN Reason: Seizures Magnesium Hydroxide (Milk Of Magnesia) 30 ml PO QDAY PRN PRN Reason: Constipation Ondansetron HCl (Zofran Odt) 4 mg PO Q6H PRN PRN Reason: Nausea And Vomiting Last Admin: 03/09/19 04:05 Dose: 4 mg Documented by: Polyethylene Glycol (Miralax 3350) 17 gm FEEDTUBE QDAY [facility] Last Admin: 03/09/19 14:10 Dose: 17 gm Documented by: Senna (Senokot) 17.2 mg PO QHS [facility] Last Admin: 03/09/19 21:23 Dose: 17.2 mg Documented by: Sucralfate (Carafate) 1 gm PO Q8H [facility] Last Admin: 03/10/19 00:11 Dose: 1 gm Documented by: Trimethoprim/Sulfamethoxazole (Bactrim Ds) 1 each PO BID [facility] Stop: 03/12/19 22:01 Last Admin: 03/09/19 21:23 Dose: 1 each Documented by: Results - Results Labs/Vitals: Laboratory Last Values Hemoglobin A1c 5.2 % (4-6) 03/06/19 12:08 Triglycerides 73 mg/dL (2-149) 03/06/19 21:18 Cholesterol 157 mg/dL (50-199) 03/06/19 21:18 LDL Cholesterol Direct 102 mg/dL (50-130) 03/06/19 21:18 HDL Cholesterol 45 mg/dL (40-59) 03/06/19 21:18 Cholesterol/HDL Ratio 3.48 % 03/06/19 21:18 Last Vital Signs Temp 99.9 F H 03/08/19 20:11 Pulse 79 03/08/19 20:11 Resp 20 03/08/19 20:11 BP 139/72 03/08/19 20:11 Pulse Ox 93 03/08/19 20:11
--- NOTE | 2019-03-10 10:40 | Discharge Summary ---
Providers - Providers Date of Admission: 03/06/19 17:03 Date of discharge: 03/10/19 Attending physician: GOOD CRAMER MD 03/06/19 15:34 Consult to Physician [CONS] Routine Comment: Consulting Provider: DENNIS MYERS Physician Instructions: Reason For Exam: Medical management og Myke patient Primary care physician: [employer] [employer] Hospitalization Reason for admission: Depressed and sucidal Condition: Stable Hospital course: The patient was provided inpatient psychiatric treatment with safe and sup portive environment, group/individual therapy, psychiatric medication, medication adjustment, adverse effect monitor, medical evaluation, medical treatment, social service assessment, social support meeting, placement assessment and psycho-education. The patients mood, cognition, behavior, motivation, compliance to treatment and appreciation on family/social support are improved and stabilized. At the time of discharge, the patient had no suicidal ideas, no homicidal ideas, no aggressive thoughts, no endangering behavior and no debilitating adverse effects. The patient agreed on the treatment plan, understood the risk, benefit, alternative treatment, potential consequence of no treatment, and gave informed consent. Disposition: DC/[place]-03 [facility] Allergies/Adverse Reactions: Allergies Penicillins Allergy (Verified 10/11/18 12:05) Itching promethazine HCl [From Phenergan] Allergy (Verified 10/11/18 12:05) Hives Vital Signs: Last Vital Signs Temp 99.9 F H 03/08/19 20:11 Pulse 79 03/08/19 20:11 Resp 20 03/08/19 20:11 BP 139/72 03/08/19 20:11 Pulse Ox 93 03/08/19 20:11 Last Lab: Laboratory Last Values Hemoglobin A1c 5.2 % (4-6) 03/06/19 12:08 Triglycerides 73 mg/dL (2-149) 03/06/19 21:18 Cholesterol 157 mg/dL (50-199) 03/06/19 21:18 LDL Cholesterol Direct 102 mg/dL (50-130) 03/06/19 21:18 HDL Cholesterol 45 mg/dL (40-59) 03/06/19 21:18 Cholesterol/HDL Ratio 3.48 % 03/06/19 21:18 - Discharge Diagnoses (1) Bipolar 1 disorder, depressed, severe Status: Acute Core Measure Documentation - Palliative Care Palliative Care/ Comfort Measures: Not Applicable - Core Measures Any of the following diagnoses?: none Exam - Constitutional Vitals: Temp Pulse Resp BP Pulse Ox 99.9 F H 79 20 139/72 93 03/08/19 20:11 03/08/19 20:11 03/08/19 20:11 03/08/19 20:11 03/08/19 20:11 General appearance: Present: no acute distress - EENT Eyes: Present: PERRL, EOM intact ENT: hearing intact, clear oral mucosa - Neck Neck: Present: normal ROM - Respiratory Respiratory effort: normal Plan Activity: advance as tolerated Weight Bearing Status: Weight Bear as Tolerated Care Plan Goals: Maintain good and stable mental health Plan of Treatment: Take medications as prescribed Health Concerns: GI problems Assessment: Bipolar disorder, depressed Follow up with: PRIMARY CARE, [Primary Care Provider] - 7 Days Prescriptions: Divalproex Sprinkle [Depakote Sprinkle] 500 mg FEEDTUBE BID #60 capsule clonazePAM [KlonoPIN] 0.5 mg PO BID #60 tablet
[2019-03-10 10:54] VITALS: BP 137/76
[2019-03-10] MEDS: levETIRAcetam 500 MG TAB PO SCH (10:55)
[2019-03-10] MEDS: DIVALPROEX SPRINKLE 125 MG CAP FEEDTUBE SCH (10:56)
[2019-03-10] MEDS: HYPROMELLOSE 0.5% OPHTH SOLN 15 ML OU SCH ×2 (10:57→17:03)
[2019-03-10] MEDS: clonazePAM 0.5 MG TAB PO SCH (10:57)
[2019-03-10] MEDS: LANSOPRAZOLE 30 MG SOLUTAB FEEDTUBE SCH (10:57)
[2019-03-10] MEDS: POLYETHYLENE GLYCOL 3350 17 GM POWDER FEEDTUBE SCH (10:58)
[2019-03-10] MEDS: LORATADINE (NF) 10 MG TAB PO SCH (10:59)
[2019-03-10] MEDS: CITALOPRAM 10 MG TAB PO SCH (10:59)
[2019-03-10] MEDS: SULFAMETHOXAZOLE/TRIMETHOPRIM 800/160MG DS TAB PO SCH (10:59)
[2019-03-10] MEDS: FLUTICASONE PROPIONATE NASAL SPRAY 16 GM NS SCH (11:55)
[2019-03-10] MEDS: ONDANSETRON 4 MG ODT TAB PO PRN (16:55)
== END 2019-03-10 17:25 | DRG 885 ==
LOC: UNDOADMIN 14:28 → 3A 14:28 → 5A 17:03
PROVIDERS: ADMIT Psychiatry & Neurology Psychiatry; ATTEND Psychiatry & Neurology Psychiatry
DX: F31.9 Bipolar disorder, unspecified (principal); Z93.1 Gastrostomy status; R45.851 Suicidal ideations; R13.10 Dysphagia, unspecified; K21.9 Gastro-esophageal reflux disease without esophagitis; F41.1 Generalized anxiety disorder; Z96.641 Presence of right artificial hip joint; K29.00 Acute gastritis without bleeding; K59.00 Constipation, unspecified; Z88.0 Allergy status to penicillin; Z88.8 Allergy status to other drugs, medicaments and biological substances; Z79.01 Long term (current) use of anticoagulants; Z79.899 Other long term (current) drug therapy
CPT/HCPCS: 36415; 80048; 80061; 80307; 80320; 81001; 83036; 85025; G0378; G0480; J1630; Q0162

== ENCOUNTER 2019-03-25 04:58 | Emergency (ER) | payer MEDICARE ==
[2019-03-25 06:18] LABS: Basophils % (Auto) 0.4 % (0.0-1.8); Hematocrit 38.9 % (30.3-42.9); Hemoglobin 13.3 gm/dl (10.1-14.3); Lymphocytes # (Auto) 0.8 K/mm3 (1.2-5.4); Lymphocytes % (Auto) 10.3 % (13.4-35.0); Mean Corpuscular HGB Conc 34 % (30-34); Mean Corpuscular Volume 88 fl (79-97); Monocytes # (Auto) 0.9 K/mm3 (0.0-0.8); Monocytes % (Auto) 11.4 % (0.0-7.3); Platelet Count 198 K/mm3 (140-440); Red Blood Count 4.42 M/mm3 (3.65-5.03); Red Cell Distribution Width 13.6 % (13.2-15.2)
[2019-03-25 06:30] LABS: BUN/Creatinine Ratio 37; Blood Urea Nitrogen 11 mg/dL (7-17); Calcium 10.7 mg/dL (8.4-10.2); Hemolysis Index 1
[2019-03-25 06:32] LABS: Alanine Aminotransferase 7 units/L (7-56); Albumin 3.7 g/dL (3.9-5)
[2019-03-25 06:37] LABS: Bilirubin,Direct < 0.2 mg/dL (0-0.2)
[2019-03-25] MEDS ORDERED: PANTOPRAZOLE 40 MG INJ IV ONE (06:55)
[2019-03-25] MEDS ORDERED: SODIUM CHLORIDE 0.9% 1000 ML 1,000 ML IV ONE (06:55)
[2019-03-25] MEDS ORDERED: ONDANSETRON 4 MG/2 ML INJ IV ONE ×2 (06:55→11:54)
[2019-03-25 07:31] LABS: INR 0.96 (0.87-1.13)
--- NOTE | 2019-03-25 07:56 | XRay Report ---
CHEST 1 VIEW INDICATION: hypertension. COMPARISON: 06/22/2018 FINDINGS: SUPPORT DEVICES: None. HEART / MEDIASTINUM: No significant abnormality. LUNGS / PLEURA: No significant pulmonary or pleural abnormality. No pneumothorax. ADDITIONAL FINDINGS: IMPRESSION: 1. No acute findings. Signer Name: Julius Rosenbaum MD Signed: 03/25/2019 7:51 AM Workstation Name: [id number]
[2019-03-25 08:51] LABS: Bacteria,Urine 1+ /HPF (Negative); Bilirubin,Urine NEG (Negative); Blood,Urine NEG (Negative); Color,Urine Yellow (Yellow); Mucus,Urine FEW /HPF; Protein,Urine <15 mg/dL mg/dL (Negative); Urobilinogen,Urine < 2.0 mg/dL (<2.0)
--- NOTE | 2019-03-25 09:24 | Cat Scan Report ---
CT abdomen pelvis w con INDICATION / CLINICAL INFORMATION: Abd pain, vomiting. TECHNIQUE: All CT scans at this location are performed using CT dose reduction for ALARA by means of automated e xposure control. COMPARISON: 06/22/2018 FINDINGS: Limited lower thoracic images are remarkable for a moderate size hiatal hernia. No acute lung disease. ABDOMEN: Gastrostomy tube appears appropriately positioned. There is a small fat-containing midline ventral hernia in the upper abdomen. The gallbladder, liver, spleen and pancreas are normal. No hydronephrosis or renal calculi. Small renal cysts are demonstrated bilaterally. No adrenal masses. No small bowel distention. Small retroperitoneal lymph nodes are visualized. The largest is in the left periaortic region measur ing 1 cm in short axis dimension. Pelvis: Moderate fecal retention throughout the colon and rectum. No dependent fluid collections or acute inflammatory changes. Hardware is seen in the right hip causing beam hardening artifact. There are chronic compression deformities of the lower thoracic and lumbar spine, similar in appearan ce to the comparison study. IMPRESSION: 1. No acute abdominal or pelvic abnormality. 2. Fat-containing ventral hernia. 3. Moderate hiatal hernia. 4. Chronic compression deformities of the thoracolumbar spine. 5. Small retroperitoneal lymph nodes. Signer Name: Cameron Szymanski MD Signed: 03/25/2019 9:20 AM Workstation Name: [id number]
--- NOTE | 2019-03-25 11:07 | Emergency Department Report ---
ED Abdominal Pain HPI - General Chief Complaint: Abdominal Pain Stated Complaint: VOMITING,EMISIS Time Seen by Provider: 03/25/19 06:15 Source: patient Mode of arrival: Stretcher Limitations: Other - History of Present Illness Initial Comments: This is a 58-year-old female that was sent for evaluation from [facility]. The patient apparently has some vomiting which was dark and they were concerned about the possibility of GI bleeding yesterday. She was sent for evaluation today. The patient does not complain of significant abdominal dis comfort. She is actually asking for water for a dry mouth. Apparently she does eat and drink as well as get nocturnal hyper bowel in her gastrostomy tube. She denies any prior history of GI bleeding. She denies any recent history of fever or chills. No further information is available from the skilled nursing. MD Complaint: other (upper GI bleeding question) -: Gradual, unknown (yesterday) - Related Data Home Medications Medication Instructions Recorded Confirmed Last Taken Butalb/Acetaminophen/Caffeine 1 cap PO Q4H PRN 03/31/15 03/25/19 1 Day Ago [Fioricet 50-300-40 mg CAP] ~03/30/15 Cetirizine HCl [ZyrTEC 10mg cap] 10 mg PO DAILY 03/31/15 03/25/19 1 Day Ago ~03/30/15 Citalopram [Celexa] 30 mg PO QDAY 03/31/15 03/25/19 1 Day Ago ~03/30/15 Fluticasone [Flonase] 2 spray NS QDAY 03/31/15 03/25/19 1 Day Ago ~03/30/15 Melatonin/Pyridoxine [Melatonin 5 1 each PO QHS 03/31/15 03/25/19 1 Day Ago mg Tablet] ~03/30/15 Ondansetron [Zofran TAB] 4 mg PO Q6H PRN 03/31/15 03/25/19 1 Day Ago ~03/30/15 bisacodyL [Dulcolax suppos] 10 mg [place] QDAY PRN 03/31/15 03/25/19 1 Day Ago ~03/30/15 levETIRAcetam [Keppra TAB] 1,500 mg PO BID 03/31/15 03/25/19 1 Day Ago ~03/30/15 Previous Rx's Medication Instructions Recorded Last Taken Type Pantoprazole [Protonix TAB] 40 mg PO QDAY #30 tablet 04/04/15 Unknown Rx Sucralfate [Carafate] 1 gm PO Q8H 30 Days tablet 04/04/15 Unknown Rx Polyethylene Glycol 3350 [Miralax 17 gm FEEDTUBE QDAY powd.pack 06/24/18 03/05/19 Rx 3350] Neomycn/Bacitrc/Polymyx/Pramox 1 applicatio TP BID 10 Days #1 10/11/18 Unknown Rx [Triple Antibiotic Plus Ointmnt] oint...g. Sulfamethoxazole/Trimethoprim 1 each PO BID 7 Days #14 tablet 10/11/18 Unknown Rx [Bactrim DS TAB] Divalproex Sprinkle [Depakote 500 mg FEEDTUBE BID #60 capsule 03/10/19 Unknown Rx Sprinkle] clonazePAM [KlonoPIN] 0.5 mg PO BID #60 tablet 03/10/19 Unknown Rx Famotidine 40 mg PO DAILY #60 oral.susp 03/25/19 Unknown Rx Sulfamethoxazole/Trimethoprim 10 ml PO BID #100 ml 03/25/19 Unknown Rx [Bactrim 200-40 mg/5 ml Oral Liq] Allergies Allergy/AdvReac Type Severity Reaction Status Date / Time Penicillins Allergy Itching Verified 10/11/18 12:05 promethazine HCl Allergy Hives Verified 10/11/18 12:05 [From Phenergan] ED Review of Systems ROS: Stated complaint: VOMITING,EMISIS Other details as noted in HPI Constitutional: denies: chills, fever Eyes: denies: eye pain, eye discharge, vision change ENT: denies: ear pain, throat pain Respiratory: denies: cough, shortness of breath, wheezing Cardiovascular: denies: chest pain, palpitations Endocrine: no symptoms reported Gastrointestinal: abdominal pain (states sometimes abdominal pain but not acutely). denies: nausea, diarrhea Genitourinary: denies: urgency, dysuria, discharge Musculoskeletal: denies: back pain, joint swelling, arthralgia Skin: denies: rash, lesions Neurological: denies: headache, weakness, paresthesias Psychiatric: denies: anxiety, depression Hematological/Lymphatic: denies: easy bleeding, easy bruising ED Past Medical Hx - Past Medical History Hx Hypertension: Yes Hx Heart Attack/AMI: Yes Hx Congestive Heart Failure: No Hx Diabetes: No Hx Deep Vein Thrombosis: Yes Hx GERD: Yes Hx Renal Disease: Yes (Stage V Kidney failure) Hx Arthritis: Yes Hx Headaches / Migraines: No Hx Seizures: Yes Hx Psychiatric Treatment: Yes (Anxiety, Schizophrenia, Bipolar, MDD) Hx Asthma: No Hx COPD: No Hx Dementia: No Hx HIV: No Additional medical history: anemia; depression; schizophrenia; peptic ulcer disease. Mental delay; bipolar; MDD; SANTANA; - Surgical History Past Surgical History?: Yes Hx Cholecystectomy: No Hx Appendectomy: No Additional Surgical History: leg surgery; Right hip replacement; GTube - Social History Smoking Status: Never Smoker - Medications Home Medications: Home Medications Medication Instructions Recorded Confirmed Last Taken Type Butalb/Acetaminophen/Caffeine 1 cap PO Q4H PRN 03/31/15 03/25/19 1 Day Ago History [Fioricet 50-300-40 mg CAP] ~03/30/15 Cetirizine HCl [ZyrTEC 10mg cap] 10 mg PO DAILY 03/31/15 03/25/19 1 Day Ago Hi story ~03/30/15 Citalopram [Celexa] 30 mg PO QDAY 03/31/15 03/25/19 1 Day Ago History ~03/30/15 Fluticasone [Flonase] 2 spray NS QDAY 03/31/15 03/25/19 1 Day Ago History ~03/30/15 Melatonin/Pyridoxine [Melatonin 5 1 each PO QHS 03/31/15 03/25/19 1 Day Ago History mg Tablet] ~03/30/15 Ondansetron [Zofran TAB] 4 mg PO Q6H PRN 03/31/15 03/25/19 1 Day Ago History ~03/30/15 bisacodyL [Dulcolax suppos] 10 mg [place] QDAY PRN 03/31/15 03/25/19 1 Day Ago History ~03/30/15 levETIRAcetam [Keppra TAB] 1,500 mg PO BID 03/31/15 03/25/19 1 Day Ago History ~03/30/15 Pantoprazole [Protonix TAB] 40 mg PO QDAY #30 tablet 04/04/15 03/25/19 Unknown Rx Sucralfate [Carafate] 1 gm PO Q8H 30 Days tablet 04/04/15 03/25/19 Unknown Rx Polyethylene Glycol 3350 [Miralax 17 gm FEEDTUBE QDAY powd.pack 06/24/18 03/25/19 03/05/19 Rx 3350] Neomycn/Bacitrc/Polymyx/Pramox 1 applicatio TP BID 10 Days #1 10/11/18 03/25/19 Unknown Rx [Triple Antibiotic Plus Ointmnt] oint...g. Sulfamethoxazole/Trimethoprim 1 each PO BID 7 Days #14 tablet 10/11/18 03/25/19 Unknown Rx [Bactrim DS TAB] Divalproex Sprinkle [Depakote 500 mg FEEDTUBE BID #60 capsule 03/10/19 03/25/19 Unknown Rx Sprinkle] clonazePAM [KlonoPIN] 0.5 mg PO BID #60 tablet 03/10/19 03/25/19 Unknown Rx Famotidine 40 mg PO DAILY #60 oral.susp 03/25/19 Unknown Rx Sulfamethoxazole/Trimethoprim 10 ml PO BID #100 ml 03/25/19 Unknown Rx [Bactrim 200-40 mg/5 ml Oral Liq] ED Physical Exam - General Limitations: Other (a bit lethargic) General appearance: alert, in no apparent distress - Head Head exam: Present: atraumatic, normocephalic - Eye Eye exam: Present: normal appearance. Absent: scleral icterus - ENT ENT exam: Present: mucous membranes moist - Neck Neck exam: Present: normal inspection - Respiratory Respiratory exam: Present: normal lung sounds bilaterally. Absent: respiratory distress - Cardiovascular Cardiovascular Exam: Present: regular rate, normal rhythm. Absent: systolic murmur, diastolic murmur, rubs, gallop - GI/Abdominal GI/Abdominal exam: Present: soft, normal bowel sounds, other (gastrostomy tube in place. Appears fully functional.). Absent: distended, tenderness, guarding, rebound, rigid - Extremities Exam Extremities exam: Present: normal inspection - Back Exam Back exam: Present: normal inspection - Neurological Exam Neurological exam: Present: alert, oriented X3 - Psychiatric Psychiatric exam: Present: normal affect, normal mood - Skin Skin exam: Present: warm, dry, intact, normal color. Absent: rash ED Course Vital Signs 03/25/19 03/25/19 03/25/19 05:28 05:32 09:14 Temperature 97.5 F L Pulse Rate 106 H 91 H Respiratory 18 18 16 Rate Blood Pressure 131/73 Blood Pressure 121/60 [Left] O2 Sat by Pulse 96 95 Oximetry - Reevaluation(s) Reevaluation #1: She was given IV fluid. Her labs were reassuring. A CT of her abdomen showed no acute process. It was double contrasted through the G-tube. 03/25/19 11:38 Reevaluation #2: On reassessment the patient stated she was hungry and had no complaints of abdominal pain. 03/25/19 11:38 ED Medical Decision Making - Lab Data Result diagrams: 03/25/19 06:00 03/25/19 06:00 Laboratory Results - last 24 hr 03/25/19 03/25/19 03/25/19 06:00 06:00 06:00 WBC 8.0 RBC 4.42 Hgb 13.3 Hct 38.9 MCV 88 MCH 30 MCHC 34 RDW 13.6 Plt Count 198 Lymph % (Auto) 10.3 L [place] % (Auto) 11.4 H Eos % (Auto) 0.0 Baso % (Auto) 0.4 Lymph # 0.8 L [place] # 0.9 H Eos # 0.0 Baso # 0.0 Seg Neutrophils % 77.9 H Seg Neutrophils # 6.2 PT 12.9 INR 0.96 Sodium 141 Potassium 4.0 Chloride 99.6 Carbon Dioxide 30 Anion Gap 15 BUN 11 Creatinine 0.3 L Estimated GFR > 60 BUN/Creatinine Ratio 37 Glucose 130 H Lactic Acid Calcium 10.7 H Magnesium Total Bilirubin Direct Bilirubin Indirect Bilirubin AST ALT Alkaline Phosphatase Troponin T NT-Pro-B Natriuret Pep Total Protein Albumin Albumin/Globulin Ratio Lipase Urine Color Urine Turbidity Urine pH Ur Specific [place] Urine Protein Urine Glucose (UA) Urine Ketones Urine Blood Urine Nitrite Urine Bilirubin Urine Urobilinogen Ur Leukocyte Esterase Urine WBC (Auto) Urine RBC (Auto) U Epithel Cells (Auto) Urine Bacteria (Auto) Urine Mucus 03/25/19 03/25/19 03/25/19 06:00 07:00 07:31 WBC RBC Hgb Hct MCV MCH MCHC RDW Plt Count Lymph % (Auto) [place] % (Auto) Eos % (Auto) Baso % (Auto) Lymph # [place] # Eos # Baso # Seg Neutrophils % Seg Neutrophils # PT INR Sodium Potassium Chloride Carbon Dioxide Anion Gap BUN Creatinine Estimated GFR BUN/Creatinine Ratio Glucose Lactic Acid 1.40 Calcium Magnesium 1.80 Total Bilirubin 0.20 Direct Bilirubin < 0.2 Indirect Bilirubin 0.0 AST 11 ALT 7 Alkaline Phosphatase 79 Troponin T < 0.010 NT-Pro-B Natriuret Pep 485.6 Total Protein 6.6 Albumin 3.7 L Albumin/Globulin Ratio 1.3 Lipase 119 H 88 H Urine Color Urine Turbidity Urine pH Ur Specific [place] Urine Protein Urine Glucose (UA) Urine Ketones Urine Blood Urine Nitrite Urine Bilirubin Urine Urobilinogen Ur Leukocyte Esterase Urine WBC (Auto) Urine RBC (Auto) U Epithel Cells (Auto) Urine Bacteria (Auto) Urine Mucus 03/25/19 07:46 WBC RBC Hgb Hct MCV MCH MCHC RDW Plt Count Lymph % (Auto) [place] % (Auto) Eos % (Auto) Baso % (Auto) Lymph # [place] # Eos # Baso # Seg Neutrophils % Seg Neutrophils # PT INR Sodium Potassium Chloride Carbon Dioxide Anion Gap BUN Creatinine Estimated GFR BUN/Creatinine Ratio Glucose Lactic Acid Calcium Magnesium Total Bilirubin Direct Bilirubin Indirect Bilirubin AST ALT Alkaline Phosphatase Troponin T NT-Pro-B Natriuret Pep Total Protein Albumin Albumin/Globulin Ratio Lipase Urine Color Yellow Urine Turbidity Cloudy Urine pH 8.0 H Ur Specific [place] 1.015 Urine Protein <15 mg/dl Urine Glucose (UA) Neg Urine Ketones 20 Urine Blood Neg Urine Nitrite Neg Urine Bilirubin Neg Urine Urobilinogen < 2.0 Ur Leukocyte Esterase Lg Urine WBC (Auto) 76.0 H Urine RBC (Auto) 7.0 U Epithel Cells (Auto) 1.0 Urine Bacteria (Auto) 1+ Urine Mucus Few - Radiology Data interpreted by me: IMPRESSION: 1. No acute abdominal or pelvic abnormality. 2. Fat-containing ventral hernia. 3. Moderate hiatal hernia. 4. Chronic compression deformities of the thoracolumbar spine. 5. Small retroperitoneal lymph nodes. Critical care attestation.: If time is entered above; I have spent that time in minutes in the direct care of this critically ill patient, excluding procedure time. ED Disposition Clinical Impression: Abdominal pain Qualifiers: Abdominal location: lower abdomen, unspecified Qualified Code(s): R10.30 - Low er abdominal pain, unspecified Urinary tract infection Qualifiers: Urinary tract infection type: site unspecified Hematuria presence: without hematuria Qualified Code(s): N39.0 - Urinary tract infection, site not specified Disposition: - TO HOME OR SELFCARE Is pt being admited?: No Does the pt Need Aspirin: No Condition: Stable Instructions: Abdominal Pain (ED), Urinary Tract Infection in Women (ED), Gastrointestinal Bleeding (ED) Additional Instructions: Medication as directed. Follow-up on the urine culture. Return as needed any fever or signs of bleeding vomiting or acute change. Prescriptions: Sulfamethoxazole/Trimethoprim [Bactrim 200-40 mg/5 ml Oral Liq] 10 ml PO BID #100 ml Famotidine 40 mg PO DAILY #60 oral.susp Referrals: JAN GARCIA MD [Primary Care Provider] - 2-3 Days Time of Disposition: 11:49
[2019-03-25] MEDS ORDERED: MEROPENEM/NS 1 GRAM/100 ML 1 GRAM/100 ML BAG IV ONE (11:44)
[2019-03-25] MEDS ORDERED: ONDANSETRON 4 MG/2 ML INJ ONE (11:55)
[2019-03-25 14:38] VITALS: BP 132/95
== END 2019-03-25 15:11 | disposition home or self-care (01) ==
LOC: ED 04:58
DX: N39.0 Urinary tract infection, site not specified (principal); F31.9 Bipolar disorder, unspecified; F20.9 Schizophrenia, unspecified; D64.9 Anemia, unspecified; F41.9 Anxiety disorder, unspecified; M19.90 Unspecified osteoarthritis, unspecified site; I12.0 Hypertensive chronic kidney disease with stage 5 chronic kidney disease or end stage renal disease; N18.5 Chronic kidney disease, stage 5; N17.9 Acute kidney failure, unspecified; Z86.718 Personal history of other venous thrombosis and embolism; Z79.899 Other long term (current) drug therapy; Z98.890 Other specified postprocedural states; Z88.0 Allergy status to penicillin; Z88.8 Allergy status to other drugs, medicaments and biological substances
CPT/HCPCS: 36415; 71045; 74177; 80048; 80076; 81001; 82140; 83690; 83735; 83880; 84484; 85025; 85610; 87040; 87076; 87086; 87186; 93005; 93010; 96361; 96365; 96375; 96376; 99285; C9113; J2185; J2405; J7030

== ENCOUNTER 2019-04-21 15:57 | Emergency (ER) | payer MEDICARE ==
[2019-04-21] MEDS ORDERED: ONDANSETRON 4 MG/2 ML INJ IV ONE (16:49)
[2019-04-21] MEDS ORDERED: SODIUM CHLORIDE 0.9% 1000 ML 1,000 ML IV ONE (16:49)
[2019-04-21] MEDS ORDERED: PANTOPRAZOLE 40 MG INJ IV ONE (16:51)
[2019-04-21] MEDS ORDERED: FAMOTIDINE 20 MG/2 ML INJ IV ONE (16:51)
[2019-04-21 17:28] LABS: Basophils % (Auto) 0.5 % (0.0-1.8); Eosinophils % (Auto) 0.2 % (0.0-4.3); Hematocrit 32.5 % (30.3-42.9); Lymphocytes # (Auto) 1.9 K/mm3 (1.2-5.4); Lymphocytes % (Auto) 24.5 % (13.4-35.0); Mean Corpuscular HGB Conc 34 % (30-34); Mean Corpuscular Volume 87 fl (79-97); Monocytes # (Auto) 1.1 K/mm3 (0.0-0.8); Monocytes % (Auto) 14.4 % (0.0-7.3); Platelet Count 208 K/mm3 (140-440); Red Blood Count 3.75 M/mm3 (3.65-5.03); Red Cell Distribution Width 13.7 % (13.2-15.2)
[2019-04-21 17:37] LABS: INR 0.95 (0.87-1.13)
[2019-04-21 17:38] LABS: Partial Thromboplastin Time 28.5 Sec. (24.2-36.6)
[2019-04-21 17:53] LABS: Alanine Aminotransferase 7 units/L (7-56); Albumin 3.2 g/dL (3.9-5); BUN/Creatinine Ratio 43; Blood Urea Nitrogen 13 mg/dL (7-17); Calcium 10.3 mg/dL (8.4-10.2); Hemolysis Index 0
[2019-04-21] MEDS ORDERED: SODIUM CHLORIDE IRRI 500 ML 500 ML IR ONE (18:20)
--- NOTE | 2019-04-21 19:20 | XRay Report ---
ABDOMEN 1 VIEW(S) INDICATION / CLINICAL INFORMATION: NV and epigastric pain. COMPARISON: None available. FINDINGS: TUBES / LINES: PEG tube in satisfactory position. BOWEL GAS PATTERN: No significant bowel distention. Colonic stool is moderate. ADDITIONAL FINDINGS: Previous placement of a right hip prosthesis. 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 Signer Name: Allan Nicholson MD Signed: 04/21/2019 7:15 PM Workstation Name: [id number]
--- NOTE | 2019-04-21 19:45 | Emergency Department Report ---
ED Abdominal Pain HPI - General Chief Complaint: Nausea/Vomiting/Diarrhea Stated Complaint: ABD PAIN Time Seen by Provider: 04/21/19 16:48 Source: EMS Mode of arrival: Stretcher Limitations: Physical Limitation - History of Present Illness Initial Comments: Patient is a 58-year-old female with a past medical history of peptic ulcer disease who is presenting with epigastric discomfort and nausea vomiting. Patient states she's been vomiting for 3 days. Patient does have a G-tube in place which she takes her feedings through. Patient states she is vomiting coffee-ground emesis. Of note the patient was at another emergency department earlier today and was discharged. - Related Data Home Medications Medication Instructions Recorded Confirmed Last Taken Butalb/Acetaminophen/Caffeine 1 cap PO Q4H PRN 03/31/15 03/25/19 1 Day Ago [Fioricet 50-300-40 mg CAP] ~03/30/15 Cetirizine HCl [ZyrTEC 10mg cap] 10 mg PO DAILY 03/31/15 03/25/19 1 Day Ago ~03/30/15 Citalopram [Celexa] 30 mg PO QDAY 03/31/15 03/25/19 1 Day Ago ~03/30/15 Fluticasone [Flonase] 2 spray NS QDAY 03/31/15 03/25/19 1 Day Ago ~03/30/15 Melatonin/Pyridoxine [Melatonin 5 1 each PO QHS 03/31/15 03/25/19 1 Day Ago mg Tablet] ~03/30/15 Ondansetron [Zofran TAB] 4 mg PO Q6H PRN 03/31/15 03/25/19 1 Day Ago ~03/30/15 bisacodyL [Dulcolax suppos] 10 mg [place] QDAY PRN 03/31/15 03/25/19 1 Day Ago ~03/30/15 levETIRAcetam [Keppra TAB] 1,500 mg PO BID 03/31/15 03/25/19 1 Day Ago ~03/30/15 Previous Rx's Medication Instructions Recorded Last Taken Type Pantoprazole [Protonix TAB] 40 mg PO QDAY #30 tablet 04/04/15 Unknown Rx Sucralfate [Carafate] 1 gm PO Q8H 30 Days tablet 04/04/15 Unknown Rx Polyethylene Glycol 3350 [Miralax 17 gm FEEDTUBE QDAY powd.pack 06/24/18 03/05/19 Rx 3350] Neomycn/Bacitrc/Polymyx/Pramox 1 applicatio TP BID 10 Days #1 10/11/18 Unknown Rx [Triple Antibiotic Plus Ointmnt] oint...g. Sulfamethoxazole/Trimethoprim 1 each PO BID 7 Days #14 tablet 10/11/18 Unknown Rx [Bactrim DS TAB] Divalproex Sprinkle [Depakote 500 mg FEEDTUBE BID #60 capsule 03/10/19 Unknown Rx Sprinkle] clonazePAM [KlonoPIN] 0.5 mg PO BID #60 tablet 03/10/19 Unknown Rx Famotidine 40 mg PO DAILY #60 oral.susp 03/25/19 Unknown Rx Sulfamethoxazole/Trimethoprim 10 ml PO BID #100 ml 03/25/19 Unknown Rx [Bactrim 200-40 mg/5 ml Oral Liq] Ondansetron [Zofran Odt] 4 mg PO Q8HR #10 tab.rapdis 04/21/19 Unknown Rx Pantoprazole [Protonix] 40 mg PO QDAY #30 tablet 04/21/19 Unknown Rx Allergies Allergy/AdvReac Type Severity Reaction Status Date / Time Penicillins Allergy Itching Verified 10/11/18 12:05 promethazine HCl Allergy Hives Verified 10/11/18 12:05 [From Phenergan] ED Review of Systems ROS: Stated complaint: ABD PAIN Other details as noted in HPI Comment: All other systems reviewed and negative ED Past Medical Hx - Past Medical History Hx Hypertension: Yes Hx Heart Attack/AMI: Yes Hx Congestive Heart Failure: No Hx Diabetes: No Hx Deep Vein Thrombosis: Yes Hx GERD: Yes Hx Renal Disease: Yes (Stage V Kidney failure) Hx Arthritis: Yes Hx Headaches / Migraines: No Hx Seizures: Yes Hx Psychiatric Treatment: Yes (Anxiety, Schizophrenia, Bipolar, MDD) Hx Asthma: No Hx COPD: No Hx Dementia: No Hx HIV: No Additional medical history: anemia; depression; schizophrenia; peptic ulcer disease. Mental delay; bipolar; MDD; SANTANA; - Surgical History Hx Cholecystectomy: No Hx Appendectomy: No Additional Surgical History: leg surgery; Right hip replacement; GTube - Social History Smoking Status: Never Smoker Substance Use Type: None - Medications Home Medications: Home Medications Medication Instructions Recorded Confirmed Last Taken Type Butalb/Acetaminophen/Caffeine 1 cap PO Q4H PRN 03/31/15 03/25/19 1 Day Ago History [Fioricet 50-300-40 mg CAP] ~03/30/15 Cetirizine HCl [ZyrTEC 10mg cap] 10 mg PO DAILY 03/31/15 03/25/19 1 Day Ago History ~03/30/15 Citalopram [Celexa] 30 mg PO QDAY 03/31/15 03/25/19 1 Day Ago History ~03/30/15 Fluticasone [Flonase] 2 spray NS QDAY 03/31/15 03/25/19 1 Day Ago History ~03/30/15 Melatonin/Pyridoxine [Melatonin 5 1 each PO QHS 03/31/15 03/25/19 1 Day Ago History mg Tablet] ~03/30/15 Ondansetron [Zofran TAB] 4 mg PO Q6H PRN 03/31/15 03/25/19 1 Day Ago History ~03/30/15 bisacodyL [Dulcolax suppos] 10 mg [place] QDAY PRN 03/31/15 03/25/19 1 Day Ago History ~03/30/15 levETIRAcetam [Keppra TAB] 1,500 mg PO BID 03/31/15 03/25/19 1 Day Ago History ~03/30/15 Pantoprazole [Protonix TAB] 40 mg PO QDAY #30 tablet 04/04/15 03/25/19 Unknown Rx Sucralfate [Carafate] 1 gm PO Q8H 30 Days tablet 04/04/15 03/25/19 Unknown Rx Polyethylene Glycol 3350 [Miralax 17 gm FEEDTUBE QDAY powd.pack 06/24/18 03/25/19 03/05/19 Rx 3350] Neomycn/Bacitrc/Polymyx/Pramox 1 applicatio TP BID 10 Days #1 10/11/18 03/25/19 Unknown Rx [Triple Antibiotic Plus Ointmnt] oint...g. Sulfamethoxazole/Trimethoprim 1 each PO BID 7 Days #14 tablet 10/11/18 03/25/19 Unknown Rx [Bactrim DS TAB] Divalproex Sprinkle [Depakote 500 mg FEEDTUBE BID #60 capsule 03/10/19 03/25/19 Unknown Rx Sprinkle] clonazePAM [KlonoPIN] 0.5 mg PO BID #60 tablet 03/10/19 03/25/19 Unknown Rx Famotidine 40 mg PO DAILY #60 oral.susp 03/25/19 Unknown Rx Sulfamethoxazole/Trimethoprim 10 ml PO BID #100 ml 03/25/19 Unknown Rx [Bactrim 200-40 mg/5 ml Oral Liq] Ondansetron [Zofran Odt] 4 mg PO Q8HR #10 tab.rapdis 04/21/19 Unknown Rx Pantoprazole [Protonix] 40 mg PO QDAY #30 tablet 04/21/19 Unknown Rx ED Physical Exam - General Limitations: Physical Limitation General appearance: alert, in no apparent distress - Head Head exam: Present: atraumatic, normocephalic - Eye Eye exam: Present: normal appearance - ENT ENT exam: Present: normal orophraynx, mucous membranes moist - Neck Neck exam: Present: normal inspection - Respiratory Respiratory exam: Present: normal lung sounds bilaterally. Absent: respiratory distress, wheezes, rales - Cardiovascular Cardiovascular Exam: Present: regular rate, normal rhythm. Absent: normal heart sounds, systolic murmur, diastolic murmur, rubs, gallop - GI/Abdominal GI/Abdominal exam: Present: soft, tenderness (epigastric), normal bowel sounds. Absent: distended, guarding, rebound - Extremities Exam Extremities exam: Present: normal inspection - Back Exam Back exam: Present: normal inspection - Neurological Exam Neurological exam: Present: alert, oriented X3 - Psychiatric Psychiatric exam: Present: normal affect, normal mood - Skin Skin exam: Present: warm, dry, intact, normal color. Absent: rash ED Course Vital Signs 04/21/19 04/21/19 16:42 18:05 Temperature 98.1 F Pulse Rate 112 H 103 H Respiratory 20 18 Rate Blood Pressure 111/66 Blood Pressure 101/58 [Left] O2 Sat by Pulse 96 98 Oximetry ED Medical Decision Making - Lab Data Result diagrams: 04/21/19 17:00 04/21/19 17:00 Lab Results 04/21/19 04/21/19 04/21/19 Range/Units 17:00 17:00 17:00 WBC 7.6 (4.5-11.0) K/mm3 RBC 3.75 (3.65-5.03) M/mm3 Hgb 11.0 (10.1-14.3) gm/dl Hct 32.5 (30.3-42.9) % MCV 87 (79-97) fl MCH 29 (28-32) pg MCHC 34 (30-34) % RDW 13.7 (13.2-15.2) % Plt Count 208 (140-440) K/mm3 Lymph % (Auto) 24.5 (13.4-35.0) % [place] % (Auto) 14.4 H (0.0-7.3) % Eos % (Auto) 0.2 (0.0-4.3) % Baso % (Auto) 0.5 (0.0-1.8) % Lymph # 1.9 (1.2-5.4) K/mm3 Early # 1.1 H (0.0-0.8) K/mm3 Eos # 0.0 (0.0-0.4) K/mm3 Baso # 0.0 (0.0-0.1) K/mm3 Seg Neutrophils % 60.4 (40.0-70.0) % Seg Neutrophils # 4.6 (1.8-7.7) K/mm3 PT 12.8 (12.2-14.9) Sec. INR 0.95 (0.87-1.13) APTT 28.5 (24.2-36.6) Sec. Sodium 138 (137-145) mmol/L Potassium 4.1 (3.6-5.0) mmol/L Chloride 103.8 (98-107) mmol/L Carbon Dioxide 23 (22-30) mmol/L Anion Gap 15 mmol/L BUN 13 (7-17) mg/dL Creatinine 0.3 L (0.7-1.2) mg/dL Estimated GFR > 60 ml/min BUN/Creatinine Ratio 43 % Glucose 134 H (65-100) mg/dL Calcium 10.3 H (8.4-10.2) mg/dL Total Bilirubin 0.20 (0.1-1.2) mg/dL AST 12 (5-40) units/L ALT 7 (7-56) units/L Alkaline Phosphatase 73 (35-129) units/L Total Protein 6.1 L (6.3-8.2) g/dL Albumin 3.2 L (3.9-5) g/dL Albumin/Globulin Ratio 1.1 % Lipase 30 (13-60) units/L - Medical Decision Making Patient is G-tube was lavaged and only clear gastric contents were present. Not appear to be any coffee-ground emesis in the stomach at this time. Patient's hemoglobin is within normal limits. Patient was given antiemetics and IV fluids. Patient's safer discharge. Critical care attestation.: If time is entered above; I have spent that time in minutes in the direct care of this critically ill patient, excluding procedure time. ED Disposition Clinical Impression: Acute gastritis Qualifiers: Gastritis type: superficial Gastritis bleeding: without bleeding Qualified Code(s): K29.00 - Acute gastritis without bleeding Disposition: DC-01 TO HOME OR SELFCARE Is pt being admited?: No Does the pt Need Aspirin: No Condition: Stable Referrals: [facility] [Provider Group] - 3-5 Days Time of Disposition: 19:47
[2019-04-21 22:40] VITALS: BP 106/59
== END 2019-04-21 22:30 | disposition home or self-care (01) ==
LOC: ED 15:57
DX: K29.00 Acute gastritis without bleeding (principal); I10 Essential (primary) hypertension; I21.9 Acute myocardial infarction, unspecified; K21.9 Gastro-esophageal reflux disease without esophagitis; M19.90 Unspecified osteoarthritis, unspecified site; G40.909 Epilepsy, unspecified, not intractable, without status epilepticus; Z98.890 Other specified postprocedural states; Z79.899 Other long term (current) drug therapy; Z88.0 Allergy status to penicillin; Z88.8 Allergy status to other drugs, medicaments and biological substances
CPT/HCPCS: 36415; 74018; 80053; 83690; 85025; 85610; 85730; 96361; 96374; 96375; 99284; C9113; J2405; J7030

== ENCOUNTER 2019-10-26 13:08 | Emergency (ER) | payer MEDICARE ==
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
[2019-10-26 15:13] LABS: Mean Corpuscular HGB Conc 30 % (30-34); Mean Corpuscular Volume 73 fl (79-97); Platelet Count 198 K/mm3 (140-440); Red Blood Count 4.78 M/mm3 (3.65-5.03)
[2019-10-26 15:14] LABS: Hematocrit 34.8 % (30.3-42.9); Hemoglobin 10.5 gm/dl (10.1-14.3)
[2019-10-26 15:15] LABS: Red Cell Distribution Width 27.4 % (13.2-15.2)
[2019-10-26 15:16] LABS: Alanine Aminotransferase 7 units/L (7-56); Albumin 3.8 g/dL (3.9-5); Blood Urea Nitrogen 19 mg/dL (7-17); Calcium 10.2 mg/dL (8.4-10.2); Hemolysis Index 16
[2019-10-26 15:38] LABS: Bacteria,Urine 1+ /HPF (Negative); Bilirubin,Urine NEG (Negative); Blood,Urine NEG (Negative); Color,Urine Yellow (Yellow); Protein,Urine <15 mg/dL mg/dL (Negative); Urobilinogen,Urine < 2.0 mg/dL (<2.0)
[2019-10-26 15:40] LABS: Amphetamine Screen,Urine Negative; Cannabinoid Screen,Urine Negative; Cocaine Screen,Urine Negative; Methadone Screen,Urine Negative; Opiate Screen,Urine Negative
[2019-10-26 15:41] LABS: BUN/Creatinine Ratio 63
[2019-10-26 16:01] LABS: Benzodiazepines Screen,Urine Positive
[2019-10-26 16:17] LABS: Total Cells Counted 100
[2019-10-26 16:18] LABS: Anisocytosis 1+; Hypochromasia 1+
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
[2019-10-27] MEDS ORDERED: VALPROIC ACID 250 MG CAP PO SCH (22:00)
[2019-10-27] MEDS: APIXABAN 2.5 MG TAB FEEDTUBE SCH (22:17)
[2019-10-27] MEDS: levETIRAcetam 500 MG/5 ML ORAL LIQD PO SCH (22:17)
[2019-10-27] MEDS: VALPROIC ACID 250 MG/5 ML ORAL LIQD FEEDTUBE SCH (22:17)
[2019-10-28] MEDS ORDERED: LANSOPRAZOLE 30 MG SOLUTAB FEEDTUBE SCH (10:00)
[2019-10-28] MEDS ORDERED: NON-FORMULARY EACH (Esomeprazole Magnesium [Nexium] 40 MG) PO SCH (10:00)
[2019-10-28] MEDS ORDERED: TRAMADOL HCL 100 MG PO PRN (10:03)
[2019-10-28] MEDS: levETIRAcetam 500 MG/5 ML ORAL LIQD PO SCH (10:20)
[2019-10-28 10:26] VITALS: BP 103/59
[2019-10-28] MEDS: APIXABAN 2.5 MG TAB FEEDTUBE SCH (10:32)
[2019-10-28] MEDS: VALPROIC ACID 250 MG/5 ML ORAL LIQD FEEDTUBE SCH (10:33)
--- NOTE | 2019-10-28 12:14 | Progress Note ---
Subjective - Reason for Consult Consult date: 10/28/19 Reason for consult: MHE Requesting physician: ERIN GAGE - Chief Complaint Chief complaint: Psych Progress Patient reports feeling not feeling good today, reports being irritated, has not been getting pain medicines that she normally gets, asked why she had not been admitted to the floor yet and why they multiple covid testing is being done. REVIEW OF SYSTEMS Constitutional: Negative for weight loss ENT: Negative for stridor Respiratory: Negative for cough or hemoptysis All other systems reviewed and are negative MENTAL STATUS EXAMINATION General Appearance and Behavior: Age appropriate, good hygiene, wearing appropriate clothes, lying in bed, good eye contact, cooperative polite with questioning. Cooperation: Participating/engage Psychomotor Behavior: unremarkable and within normal limits Mood: Good Affect and affective range: Irritated Thought Process: Fluent/Logical Thought Content: Within reality Speech: Normal volume, Regular rate and rhythm Intellectual Functioning: Average Suicidal Ideation: Denies SI Homicidal Ideation: Denies HI Impulse Control: Impaired Insight and Judgment: Normal insight and judgment Memory: Normal Attention: Normal Orientation: Alert, oriented RECOMMENDATIONS MEDICATIONS: Home meds restarted Risks, benefits and alternatives of medications discussed with the patient, questions answered and consent obtained from patient. PSYCHOTHERAPY: Supportive psychotherapy provided MEDICAL: Per primary team DELIRIUM PRECAUTIONS: Please re-orient patient frequently, keep lights on during the day, and minimize benzodiazepines and opiates as these medications could worsen patient's confusion. ARNP: DISPOSITION: Admit to [facility] psych if negative covid testing LEGAL STATUS: 1013 FOLLOW-UP: Will follow Thank you for the consult. Please contact with any questions and/or concerns. Mental Status Exam - Vital signs Last Vital Signs Temp 98.1 F 10/28/19 10:24 Pulse 70 10/28/19 10:24 Resp 18 10/28/19 01:30 BP 103/59 10/28/19 10:24 Pulse Ox 95 10/28/19 01:30
[2019-10-28] MEDS ORDERED: GABAPENTIN 500 MG/10 ML ORAL LIQD PO SCH (14:00)
== END 2019-10-28 18:40 | disposition admitted as inpatient to this hospital (09) ==
LOC: ED 13:08
DX: F31.9 Bipolar disorder, unspecified (principal); I10 Essential (primary) hypertension; K21.9 Gastro-esophageal reflux disease without esophagitis; M19.90 Unspecified osteoarthritis, unspecified site; Z86.69 Personal history of other diseases of the nervous system and sense organs; F41.9 Anxiety disorder, unspecified; Z98.890 Other specified postprocedural states; Z79.899 Other long term (current) drug therapy; Z88.0 Allergy status to penicillin; Z88.1 Allergy status to other antibiotic agents
CPT/HCPCS: 36415; 80053; 80307; 81001; 85007; 85025; 87086; 99284; J3246; U0003; 80320; G0480

== ENCOUNTER 2019-12-04 22:26 | Emergency (ER) | payer MEDICARE ==
[2019-12-05] MEDS ORDERED: FUROSEMIDE 40 MG/4 ML INJ IV ONE (00:02)
[2019-12-05 00:37] LABS: Hemoglobin 9.3 gm/dl (10.1-14.3); Mean Corpuscular HGB Conc 32 % (30-34); Mean Corpuscular Volume 74 fl (79-97); Platelet Count 150 K/mm3 (140-440)
[2019-12-05 00:47] VITALS: BP 104/53
[2019-12-05 00:47] LABS: Red Cell Distribution Width 20.5 % (13.2-15.2)
[2019-12-05 00:56] LABS: Blood Urea Nitrogen 19 mg/dL (7-17); Calcium 9.9 mg/dL (8.4-10.2); Hemolysis Index 0
[2019-12-05 00:59] LABS: BUN/Creatinine Ratio 63
--- NOTE | 2019-12-05 01:31 | Emergency Department Report ---
ED General Adult HPI - General Chief complaint: Extremity Problem,Nontraumatic Stated complaint: LT LEG SWELLING Time Seen by Provider: 12/04/19 23:55 Source: patient, EMS Mode of arrival: Stretcher Limitations: No Limitations - History of Present Illness Initial comments: Patient is a 59-year-old female with a past medical history of DVT was on Eliquis mild dementia GERD history of ND and hypertension who also has seizures and schizophrenia who is presenting from residential with leg swelling. Legs been progressively worsening over the past 2 weeks. Both lower extremities are swollen but the left is slightly more swollen than the right. She denies any fever trauma cough cold congestion shortness of breath or chest pain. Patient is compliant with her Eliquis. - Related Data Home Medications Medication Instructions Recorded Confirmed Last Taken Acetaminophen [Acetaminophen TAB] 2 tab FEEDTUBE HS 10/27/19 10/29/19 Unknown Apixaban [Eliquis] 2.5 mg FEEDTUBE Q12HR 10/27/19 10/29/19 Unknown Cetirizine HCl [ZyrTEC 10mg cap] 10 mg PO QDAY 10/27/19 10/29/19 Unknown Esomeprazole Magnesium [NexIUM] 40 mg PO QDAY 10/27/19 10/29/19 Unknown FLUoxetine HCL [FLUoxetine] 40 mg PO QDAY 10/27/19 10/29/19 Unknown FLUoxetine [PROzac] 40 mg PO QDAY 10/27/19 10/29/19 Unknown Gabapentin [Neurontin 250 mg/5 ml] 100 mg FEEDTUBE Q8HR 10/27/19 10/29/19 Unknown Melatonin [Melatonin 5MG TAB] 5 mg PO HS 10/27/19 10/29/19 Unknown Scopolamine 1 patch TRANSDERMA 1XW 10/27/19 10/29/19 Unknown Sennosides/Docusate Sodium 100 mg FEEDTUBE BID 10/27/19 10/29/19 Unknown [Docusate Sodium-Sennosides Tab] Sennosides/Docusate Sodium [Senna 2 tab PO HS 10/27/19 10/29/19 Unknown Plus Tablet] Sucralfate [Carafate] 1 gm PO Q8HR 10/27/19 10/29/19 Unknown Tramadol HCl [traMADol ER 100 MG] 100 mg PO DAILY PRN 10/27/19 10/29/19 Unknown Valproic Acid [Depakene] 750 mg FEEDTUBE Q12HR 10/27/19 10/29/19 Unknown bisacodyL [Dulcolax suppos] 10 mg [place] ONCE PRN 10/27/19 10/29/19 Unknown levETIRAcetam [Keppra] 1,500 mg PO BID 10/27/19 10/29/19 Unknown ondansetron HCL [Ondansetron HCl] 4 mg IM Q6HR 10/27/19 10/29/19 Unknown oxyCODONE /ACETAMINOPHEN [Percocet 1 tab FEEDTUBE Q8HR PRN 10/27/19 10/29/19 Unknown 5/325 mg] ALPRAZolam [Xanax TAB] 1 mg PO Q12HR PRN 10/29/19 10/29/19 Unknown Artificial Tears 1 drop OU Q8HR 10/29/19 10/29/19 Unknown Previous Rx's Medication Instructions Recorded Last Taken Type polyethylene glycoL 3350 [Miralax 17 gm FEEDTUBE QDAY powd.pack 06/24/18 03/05/19 Rx 3350] Neomycn/Bacitrc/Polymyx/Pramox 1 applicatio TP BID 10 Days #1 10/11/18 Unknown Rx [Triple Antibiotic Plus Ointmnt] oint...g. OLANzapine [ZyPREXA] 5 mg PO DAILY #30 tablet 11/02/19 Unknown Rx VALPROIC ACID Liq [DepaKENE Liq] 250 mg FEEDTUBE BID #1 oral.liqd 11/02/19 Unknown Rx Furosemide [Lasix] 20 mg PO QDAY #7 tablet 12/05/19 Unknown Rx Allergies Allergy/AdvReac Type Severity Reaction Status Date / Time Penicillins Allergy Itching Verified 10/11/18 12:05 promethazine HCl Allergy Hives Verified 10/11/18 12:05 [From Phenergan] ED Review of Systems ROS: Stated complaint: LT LEG SWELLING Other details as noted in HPI Comment: All other systems reviewed and negative ED Past Medical Hx - Past Medical History Previous Medical History?: Yes Hx Hypertension: Yes Hx Heart Attack/AMI: Yes Hx Congestive Heart Failure: No Hx Diabetes: No Hx Deep Vein Thrombosis: Yes Hx GERD: Yes Hx Renal Disease: Yes (Stage V Kidney failure) Hx Arthritis: Yes Hx Headaches / Migraines: No Hx Seizures: Yes Hx Psychiatric Treatment: Yes (Anxiety, Schizophrenia, Bipolar, MDD) Hx Asthma: No Hx COPD: No Hx Dementia: Yes Hx HIV: No Additional medical history: anemia; depression; schizophrenia; peptic ulcer disease. Mental delay; bipolar; MDD; SANTANA; - Surgical History Past Surgical History?: Yes Hx Cholecystectomy: No Hx Appendectomy: No Additional Surgical History: leg surgery; Right hip replacement; GTube - Social History Smoking Status: Never Smoker Substance Use Type: None - Medications Home Medications: Home Medications Medication Instructions Recorded Confirmed Last Taken Type polyethylene glycoL 3350 [Miralax 17 gm FEEDTUBE QDAY powd.pack 06/24/18 10/29/19 03/05/19 Rx 3350] Neomycn/Bacitrc/Polymyx/Pramox 1 applicatio TP BID 10 Days #1 10/11/18 10/29/19 Unknown Rx [Triple Antibiotic Plus Ointmnt] oint...g. Acetaminophen [Acetaminophen TAB] 2 tab FEEDTUBE HS 10/27/19 10/29/19 Unknown History Apixaban [Eliquis] 2.5 mg FEEDTUBE Q12HR 10/27/19 10/29/19 Unknown History Cetirizine HCl [ZyrTEC 10mg cap] 10 mg PO QDAY 10/27/19 10/29/19 Unknown History Esomeprazole Magnesium [NexIUM] 40 mg PO QDAY 10/27/19 10/29/19 Unknown History FLUoxetine HCL [FLUoxetine] 40 mg PO QDAY 10/27/19 10/29/19 Unknown History FLUoxetine [PROzac] 40 mg PO QDAY 10/27/19 10/29/19 Unknown History Gabapentin [Neurontin 250 mg/5 ml] 100 mg FEEDTUBE Q8HR 10/27/19 10/29/19 Unknown History Melatonin [Melatonin 5MG TAB] 5 mg PO HS 10/27/19 10/29/19 Unknown History Scopolamine 1 patch TRANSDERMA 1XW 10/27/19 10/29/19 Unknown History Sennosides/Docusate Sodium 100 mg FEEDTUBE BID 10/27/19 10/29/19 Unknown History [Docusate Sodium-Sennosides Tab] Sennosides/Docusate Sodium [Senna 2 tab PO HS 10/27/19 10/29/19 Unknown History Plus Tablet] Sucralfate [Carafate] 1 gm PO Q8HR 10/27/19 10/29/19 Unknown History Tramadol HCl [traMADol ER 100 MG] 100 mg PO DAILY PRN 10/27/19 10/29/19 Unknown History Valproic Acid [Depakene] 750 mg FEEDTUBE Q12HR 10/27/19 10/29/19 Unknown History bisacodyL [Dulcolax suppos] 10 mg [place] ONCE PRN 10/27/19 10/29/19 Unknown History levETIRAcetam [Keppra] 1,500 mg PO BID 10/27/19 10/29/19 Unknown History ondansetron HCL [Ondansetron HCl] 4 mg IM Q6HR 10/27/19 10/29/19 Unknown History oxyCODONE /ACETAMINOPHEN [Percocet 1 tab FEEDTUBE Q8HR PRN 10/27/19 10/29/19 Unknown History 5/325 mg] ALPRAZolam [Xanax TAB] 1 mg PO Q12HR PRN 10/29/19 10/29/19 Unknown History Artificial Tears 1 drop OU Q8HR 10/29/19 10/29/19 Unknown History OLANzapine [ZyPREXA] 5 mg PO DAILY #30 tablet 11/02/19 Unknown Rx VALPROIC ACID Liq [DepaKENE Liq] 250 mg FEEDTUBE BID #1 oral.liqd 11/02/19 Unknown Rx Furosemide [Lasix] 20 mg PO QDAY #7 tablet 12/05/19 Unknown Rx ED Physical Exam - General Limitations: No Limitations General appearance: alert, in no apparent distress - Head Head exam: Present: atraumatic, normocephalic - Eye Eye exam: Present: normal appearance - ENT ENT exam: Present: mucous membranes moist - Neck Neck exam: Present: normal inspection - Respiratory Respiratory exam: Present: normal lung sounds bilaterally. Absent: respiratory distress, wheezes, rales, rhonchi - Cardiovascular Cardiovascular Exam: Present: regular rate, normal rhythm. Absent: systolic murmur, diastolic murmur, rubs, gallop - GI/Abdominal GI/Abdominal exam: Present: soft, normal bowel sounds. Absent: distended, tenderness, guarding, rebound - Extremities Exam Extremities exam: Present: normal inspection, other (2+ edema in the bilateral lower extremities up to the level of the knee. There is some very mild warmth to the bilateral lower extremities. Minimal erythema.) - Back Exam Back exam: Present: normal inspection - Neurological Exam Neurological exam: Present: alert, oriented X3 - Psychiatric Psychiatric exam: Present: normal affect, normal mood - Skin Skin exam: Present: warm, dry, intact, normal color. Absent: rash ED Course Vital Signs 12/04/19 12/04/19 12/04/19 18:36 18:46 19:00 Temperature Pulse Rate 72 72 87 Respiratory 17 15 14 Rate Blood Pressure Blood Pressure [Left] O2 Sat by Pulse Oximetry 12/04/19 12/04/19 12/04/19 19:16 19:30 19:45 Temperature Pulse Rate 73 74 76 Respiratory 15 17 14 Rate Blood Pressure 132/60 Blood Pressure [Left] O2 Sat by Pulse Oximetry 12/04/19 12/04/19 12/04/19 20:00 20:16 20:30 Temperature Pulse Rate 86 84 83 Respiratory 15 17 9 L Rate Blood Pressure 132/60 132/60 132/60 Blood Pressure [Left] O2 Sat by Pulse Oximetry 12/04/19 12/04/19 12/04/19 20:46 21:00 21:16 Temperature Pulse Rate 92 H 75 76 Respiratory 16 15 19 Rate Blood Pressure 132/60 132/60 132/60 Blood Pressure [Left] O2 Sat by Pulse Oximetry 12/04/19 12/04/19 12/04/19 21:30 22:39 22:40 Temperature 98 F Pulse Rate 84 89 Respiratory 16 18 Rate Blood Pressure 132/60 132/60 Blood Pressure 107/53 [Left] O2 Sat by Pulse 95 95 Oximetry 12/04/19 12/04/19 12/04/19 22:46 23:00 23:16 Temperature Pulse Rate Respiratory Rate Blood Pressure 107/53 120/65 120/65 Blood Pressure [Left] O2 Sat by Pulse 95 94 94 Oximetry 12/04/19 12/04/19 12/05/19 23:30 23:46 00:00 Temperature Pulse Rate Respiratory Rate Blood Pressure 120/65 120/65 104/53 Blood Pressure [Left] O2 Sat by Pulse 94 93 94 Oximetry 12/05/19 12/05/19 00:16 00:30 Temperature Pulse Rate Respiratory Rate Blood Pressure 104/53 104/53 Blood Pressure [Left] O2 Sat by Pulse 95 95 Oximetry ED Medical Decision Making - Lab Data Result diagrams: 12/05/19 00:20 12/05/19 00:20 Lab Results 12/05/19 12/05/19 Range/Units 00:20 00:20 WBC 7.5 (4.5-11.0) K/mm3 RBC 3.90 (3.65-5.03) M/mm3 Hgb 9.3 L (10.1-14.3) gm/dl Hct 29.0 L (30.3-42.9) % MCV 74 L (79-97) fl MCH 24 L (28-32) pg MCHC 32 (30-34) % RDW 20.5 H (13.2-15.2) % Plt Count 150 (140-440) K/mm3 Sodium 140 (137-145) mmol/L Potassium 3.8 (3.6-5.0) mmol/L Chloride 104.6 (98-107) mmol/L Carbon Dioxide 27 (22-30) mmol/L Anion Gap 12 mmol/L BUN 19 H (7-17) mg/dL Creatinine 0.3 L (0.6-1.2) mg/dL Estimated GFR > 60 ml/min BUN/Creatinine Ratio 63 % Glucose 135 H (65-100) mg/dL Calcium 9.9 (8.4-10.2) mg/dL - Medical Decision Making Patient is renal function is within normal limits. She is compliant with her Eliquis making acute DVT less likely. Patient lungs are clear to auscultation is unlikely that the patient has decompensated heart failure. Patient likely with dependent edema secondary to positioning. Patient started on several days of Lasix for diuresis and the patient be discharged home. Critical care attestation.: If time is entered above; I have spent that time in minutes in the direct care of this critically ill patient, excluding procedure time. ED Disposition Clinical Impression: Dependent edema Disposition: DC-01 TO HOME OR SELFCARE Is pt being admited?: No Does the pt Need Aspirin: No Condition: Stable Instructions: Leg Edema (ED) Prescriptions: Furosemide [Lasix] 20 mg PO QDAY #7 tablet Referrals: PRIMARY CARE, [Primary Care Provider] - 3-5 Days Time of Disposition: 01:30
[2019-12-05 04:33] LABS: Anisocytosis 1+; Basophils % (Manual) 0 % (0.0-1.8); Hypochromasia 1+; Total Cells Counted 100
[2019-12-05 04:34] LABS: Ovalocytes Few; Platelet Estimate Consistent w Auto; Schistocytes Rare
== END 2019-12-05 05:09 | disposition home or self-care (01) ==
LOC: ED 22:26
DX: R60.9 Edema, unspecified (principal); I25.2 Old myocardial infarction; I10 Essential (primary) hypertension; K21.9 Gastro-esophageal reflux disease without esophagitis; M19.91 Primary osteoarthritis, unspecified site; R56.9 Unspecified convulsions; F03.90 Unspecified dementia, unspecified severity, without behavioral disturbance, psychotic disturbance, mood disturbance, and anxiety; Z98.890 Other specified postprocedural states; Z79.899 Other long term (current) drug therapy; Z88.0 Allergy status to penicillin; Z88.8 Allergy status to other drugs, medicaments and biological substances
CPT/HCPCS: 36415; 80048; 85007; 85025; 96374; 99284; J1940